=== PATIENT | female | born 1965 | race Caucasian/White ===

== ENCOUNTER 2023-10-05 12:00 | Outpatient (RCR) | payer OTHER, MEDICAID, SELFPAY | END 2023-11-02 09:29 | disposition home or self-care (01) | LOC: HO.PT 12:00 | PROVIDERS: PCP Internal Medicine; Visit Provider Psychiatry & Neurology Neurology | DX: M25.512 Pain in left shoulder (principal); M54.31 Sciatica, right side | CPT/HCPCS: 97110; 97140; 97161 ==

== ENCOUNTER 2025-02-08 08:09 | Outpatient (AMB) | payer OTHER, MEDICAID, SELFPAY ==
--- OUTSIDE RECORDS SUMMARY | 2025-02-08 08:23 | XMS_ITS | Continuity of Care Document ---
Author Organization [place] [facility], Allergy Address [address] [address] Assessment No assessment recorded. Plan of Treatment Reminders Order Date Submit Date Provider Last Modified By Organization Details Last Modified Time Details Appointments Allergy IDT Only 2024 09:00A M [facility] Not available Not available Not available Test Results 15 2024 09:00A M JENN LAINEZ MD Not available Not available Not available Lab None recorded . Referral None recorded . Procedures None recorded . Surgeries None recorded . Imaging None recorded . Medication Orders None recorded . Patient TargetsNo targets recorded. Patient InstructionsNo instructions recorded. Reason for Referral None Reported. Results Created Date Observation Date Name Description Value Unit Range Abnormal Flag Note LastModifiedBy Organization Detail LastModifiedTime 01/24/2001/04/2025 CT, sinus es, w/o contr ast No observ ation record ed. [email or web address] [address], [address], 01/29/2025 17:05:36 02/06/20 25 becky metry testi ng* No observ ation record ed. [email or web address] Not Available 2024 09:25:24 Result Notes None recorded. 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 Active 2024 JENN LAINEZ MD 100 [facility] [address], [address], [place] [facility] 09:25:15 Allergic rhinitis caused by pollen 74233198 Active 2024 JENN LAINEZ MD 100 [facility], [address] [facility], [place], [address], [facility] 5 12:07:19 Migraine 08538855 Active 2024 JENN LAINEZ MD 100 [facility], [address] [facility], [place], [address], [facility] 5 12:07:33 Allergic rhinitis 35061071 Active 2024 JENN LAINEZ MD 100 [facility],[place] [address], [place], [address], [facility] 12:11:31 Non-allergi c rhinitis 510749333814 Active 2024 JENN LAINEZ MD [address] [address], [place], [address], [facility] 12:11:31 Seasonal allergic rhinitis 877170722 Active 2024 JENN LAINEZ MD [address] [address], [place], [address], [facility] 12:11:31 Perennial allergic rhinitis 740265020 Active 2024 KELLY QUEEN [address] [address], [place], [address], [facility] 09:20:47 Problem Notes None recorded. Procedures Surgical History Date Name Laterality Status Provider Name and Address Organization Details Recorded Time Allergy Testing-Full completed KELLY QUEEN [address], [address], [facility] 02/05/2025 09:59:28 Imaging Results None recorded. Procedure Notes None recorded. Medical Equipment None Reported. Allergies Allergen ID Allergen Name Allergen Category Reaction Reaction Severity Criticality Documentation Date Start Date Code Code System Note Provider Name and Address Organization Details Recorded Time 813806 Diflucan medicatio n Not available Not available Not available 01/04/2025 3 RxNorm Melissa murillo [place] - [facility] 5 08:37:17 Medications Name Sig Start Date Stop Date Status Note LastModified by Organization Details LastModified Time cyclobenzap rine 10 mg tablet TAKE 1 TABLET BY MOUTH THREE TIMES A DAY FOR 10 DAYS active Not Available Not Available No t Available doxycycline hyclate 100 mg capsule TAKE 1 CAPSULE ORALLY 2 TIMES A DAY FOR 10DAYS WITH AT LEAST 8OZ OF WATER DON'T LIE DOWN FOR 30 MIN 01/04 completed Not Available Not Available Not Available cetirizine 10 mg tablet TAKE 1 TABLET BY MOUTH 1 TIME EACH DAY. 01/04 completed Not Available Not Available Not Available azithromyci n 250 mg tablet TAKE 2 TABLETS BY MOUTH TODAY, THEN TAKE 1 TABLET DAILY FOR 4 DAYS DIRECTED 01/04 completed Not Available Not Available Not Available prazosin 1 mg capsule TAKE 1 CAPSULE BY MOUTH EVERY NIGHT AT BEDTIME. 01/04 completed Not Available Not Available Not Available senna 8.6 mg tablet TAKE 1 TABLET BY MOUTH EVERY DAY 01/04 completed Not Available Not Available Not Available rizatriptan 10 mg tablet TAKE 1 TABLET BY MOUTH EVERY DAY NEEDED FOR 30 DAYS 01/04 completed Not Available Not Available Not Available clonazepam 1 mg tablet TAKE 1 TABLET BY MOUTH TWICE A DAY AND 1/2 TABLET NEEDED FOR PANIC DIRECTED active Not Available Not Available No t Available amlodipine 2.5 mg tablet TAKE 1 TABLET BY MOUTH EVERY DAY 01/04 completed Not Available Not Available Not Available fexofenadin e 180 mg tablet TAKE 1 TABLET (180 MG TOTAL) BY MOUTH DAILY FOR 90 DAYS active Not Available Not Available No t Available tramadol 50 mg tablet TAKE 1 TABLET BY MOUTH TWICE A DAY 01/04 completed Not Available Not Available Not Available butalbital- acetaminoph en-caffeine 50 mg-325 mg-40 mg tablet TAKE 1 TABLET BY MOUTH 2 (TWO) TIMES A DAY IF NEEDED FOR HEADACHES FOR UP TO 8 DOSES. 01/04 completed Not Available Not Available Not Available hydrocortis one 2.5 % topical cream with perineal applicator APPLY TOPICALLY 3 TIMES DAILY 01/04 completed Not Available Not Available Not Available famotidine 20 mg tablet TAKE 1 TABLET BY MOUTH 2 TIMES DAILY NEEDED FOR HEARTBURN . 01/04 completed Not Available Not Available Not Available trazodone 100 mg tablet TAKE 2 & 1/2 TABLETS BY MOUTH EVERYDAY AT BEDTIME active Not Available Not Available No t Available meclizine 25 mg tablet TAKE 1 TABLET BY MOUTH EVERY 6 HOURS NEEDED FOR VERTIGO 01/04 completed Not Available Not Available Not Available benzonatate 100 mg capsule SWALLOW WHOLE TAKE 1 CAPSULE 3 TIMES A DAY NEEDED *DO NOT BREAK CHEW, DISSOLVE, CUT, OR CRUSH* 01/04 completed Not Available Not Available Not Available rizatriptan 10 mg disintegrat ing tablet PLACE 1 TABLET ON TONGUE AND ALLOW TO DISSOLVE ONCE DAILY NEEDED 01/04 completed Not Available Not Available Not Available pantoprazol e 40 mg tablet,paolo yed release TAKE 1 TABLET BY MOUTH 2 TIMES DAILY BEFORE MEALS ON EMPTY STOMACH, WAIT 30 MINS AND THEN EAT 01/04 completed Not Available Not Available Not Available oseltamivir 75 mg capsule TAKE 1 CAPSULE BY MOUTH TWICE A DAY FOR 5 DAYS 01/04 completed Not Available Not Available Not Available naproxen 500 mg tablet,paolo yed release TAKE 1 TABLET BY MOUTH TWICE A DAY FOR 10 DAYS 01/04 completed Not Available Not Available Not Available docusate sodium 100 mg capsule TAKE 1 CAPSULE BY MOUTH TWICE A DAY FOR 10 DAYS 01/04 completed Not Available Not Available Not Available oxybutynin chloride ER 5 mg tablet,exte nded release 24 hr TAKE 1 TABLET BY MOUTH EVERY DAY DO NOT CRUSH, CHEW, OR SPLIT 01/04 completed Not Available Not Available Not Available montelukast 10 mg tablet TAKE 1 TABLET BY MOUTH EVERYDAY AT BEDTIME active Not Available Not Available No t Available capsaicin 0.025 % topical cream APPLY TOPICALLY 4 (FOUR) TIMES A DAY IF NEEDED (PAIN). 01/04 completed Not Available Not Available Not Available bisacodyl 5 mg tablet,paolo yed release TAKE 2 TABLETS BY MOUTH RIGHT BEFORE BEGINNING BOWEL PREP. SEE INSTRUCTI ONS PROVIDED BY THE OFFICE 01/04 completed Not Available Not Available Not Available gabapentin 100 mg capsule TAKE 2 CAPSULE BY MOUTH EVERY NIGHT AT BEDTIME active Not Available Not Available No t Available azelastine 137 mcg (0.1 %) nasal spray USE 2 SPRAYS BY EACH NARE ROUTE 2 TIMES DAILY. USE IN EACH NOSTRIL DIRECTED active Not Available Not Available No t Available methylpredn isolone 4 mg tablets in a dose pack TAKE 6 TABLETS ON DAY 1 DIRECTED ON PACKAGE AND DECREASE BY 1 TAB EACH DAY FOR A TOTAL OF 6 DAYS 01/04 completed Not Available Not Available Not Available ondansetron 4 mg disintegrat ing tablet DISSOLVE 1 TABLET ON TOP OF THE TONGUE EVERY 12 HOURS IF NEEDED FOR NAUSEA OR VOMITING 01/04 completed Not Available Not Available Not Available fluticasone propionate 50 mcg/actuati on nasal spray,suspe nsion SPRAY 2 SPRAYS INTO EACH NOSTRIL EVERY DAY 02/05 completed Not Available Not Available Not Available prazosin 2 mg capsule TAKE 1 CAPSULE BY MOUTH EVERY NIGHT AT BEDTIME. 01/04 completed Not Available Not Available Not Available naproxen 500 mg tablet TAKE 1 TABLET BY MOUTH 2 TIMES PER DAY NEEDED FOR PAIN FOR 30 DAYS 01/04 completed Not Available Not Available Not Available amoxicillin 875 mg-potassiu m clavulanate 125 mg tablet TAKE 1 TABLET BY MOUTH TWICE A DAY FOR 10 DAYS 01/04 completed Not Available Not Available Not Available Yana-Lanta 200 mg-200 mg-20 mg/5 mL oral suspension TAKE 15 ML BY MOUTH 4 TIMES DAILY NEEDED FOR OTHER (HEARTBUR N). 01/04 completed Not Available Not Available Not Available metoprolol tartrate 25 mg tablet TAKE 1/2 TABLET TWICE A DAY BY MOUTH 01/04 completed Not Available Not Available Not Available duloxetine 30 mg capsule,del ayed release TAKE 1 CAPSULE BY MOUTH EVERY DAY FOR 90 DAYS active Not Available Not Available No t Available duloxetine 60 mg capsule,del ayed release TAKE 1 CAPSULE BY MOUTH EVERY DAY FOR 90 DAYS 01/04 completed Not Available Not Available Not Available PreviDent 5000 Sensitive 1.1 %-5 % dental paste USE TO BRUSH TEETH TWCE DAILY. DO NOT RINSE. NO FOOD OR DRINK FOR 30 MINUTES AFTER USE 01/04 completed Not Available Not Available Not Available fluticasone propionate 115 mcg-salmete rol 21 mcg/actuati on HFA inhaler INHALE 2 PUFFS INTO THE LUNGS TWICE A DAY 02/05 completed Not Available Not Available Not Available diclofenac 1 % topical gel APPLY 4 GRAMS TOPICALLY TWICE DAILY active Not Available Not Available No t Available GaviLyte-G 236 gram-22.74 gram-6.74 gram-5.86 gram oral solution PLEASE SEE ATTACHED FOR DETAILED DIRECTION S 01/04 completed Not Available Not Available Not Available Aimovig Autoinjecto r 140 mg/mL subcutaneou s auto-inject or INJECT 1 PEN SUBCUTANE OUSLY ONCE A MONTH 01/04 completed Not Available Not Available Not Available Vitals Date Recorded Body height Oxygen saturation Oxygen saturation in Arterial blood by Pulse oximetry Heart rate Body mass index (BMI) Body weight Systolic And Diastolic Provider Name and Address Organization Details Last Updated DateTime 165.1 cm 97 % 97 % 63 /min 27.3 kg/m2 67945.1 5 g 105/73 mm[Hg] KELLY QUEEN 100 [facility],[address], [place], [address] [place] [address] [facility] 09:19:58 Social History None recorded. Functional Status None recorded. Mental Status None recorded. Family History Nothing Reported. Medical History Condition Response Migraines Y Anxiety Y Gynecological HistoryNo gynecological history recorded. Obstetrics History GPAL:G 0 P 0 0 0 0 Past Encounters Encounter ID Performer Location Encounter Start Date Encounter Closed Date Diagnosis/Indication Diagnosis SNOMED-CT Code Diagnosis ICD10 Code Diagnosis IMO Codes Diagnosis Note [id number] KELLY QUEEN [facility] [place] [address] [address] [place] [address] 02/05/2025 08:48:35 02/05/2025 09:59:46 Perennial allergic rhinitis 535953187 J30.89 514993 Health Concerns Section Related Observation LastModified by Organization Detai ls LastModified Time None Recorded Concern Status LastModified by Organization Details LastModified Time None Recorded Payers Encounter Date Sequence Insurance Name Policy Number Policy Brown Covered Member ID Brown Member ID Guarantor Name 02/05/2025 1 [facility] [id number] Ghazal Her [id number] Ghazal Her 02/05/2025 2 [place]: [facility] Ghazal Her [id number] Ghazal Her OBGyn Episode No OBEpisode recorded.
--- OUTSIDE RECORDS SUMMARY | 2025-02-08 08:23 | XMS_ITS | Data Portability ---
Author Organization [place] [facility], Allergy Address [address] [address] Assessment Encounter Date Assessment Date Assessment LastModified by Organization Details LastModified Time 01/04/2025 01/04/2025 59-year-old female with a history of migraines, not adequately controlled with Aimovig, seasonal allergies on oral antihistamine and fluticasone, presents today for evaluation of recurrent sinusitis which is generally treated with antibiotics. She is feeling symptomatic today with congestion and nasal rhinorrhea. She has had head imaging including a CT of the head 1 week ago and an MRI in September 2023 which I reviewed which showed clear sinuses. On exam today, septum is deviated to the right, no active mucus drainage is noted. Given she is acutely symptomatic today and her most recent CT of the head did not include the majority of the maxillary sinuses, we did proceed with in office CT today which showed trace mucosal thickening in the maxillary sinuses, no air-fluid levels or any sinus obstruction. Formal radiology review pending. I have reassured her that there is no evidence of any acute bacterial sinusitis contributing to her symptoms. I think her recurrent symptoms are much more likely related to allergies and migraines. Will add in azelastine and I have recommended updated testing as she may be a candidate for IT. [email or web address] Not available 01/04/2025 12:13:29 Plan of Treatment Reminders Order Date Submit Date Provider Last Modified By Organization Details Last Modified Time Details Appointments Allergy IDT Only 2024 09:00A [facility] Not available Not available Not available Test Results 15 2024 09:00A M JENN LAINEZ MD Not available Not available Not available Lab None recorded. Referral None recorded. Procedures allergy testing, skin prick (PROC) 2024 025 [email or web address] Not available 02/05/2025 09:32:11 intraderm al allergy skin testing (PROC) 2024 025 Not available 02/05/2025 09:32:17 pulmonary function test procedure (PROC) 2024 025 [email or web address] Not available 02/05/2025 09:32:23 pulse oximetry (PROC) 2024 025 [email or web address] Not available 02/05/2025 09:32:29 Surgeries None recorded. Imaging CT, sinuses, w/o contrast 2024 025 [facility], [address] [place] [address], [address], 01/17/2025 11:58:20 Medication Orders azelastin e 137 mcg (0.1 %) nasal spray 2024 025 [facility] #[id number], [address] [place], [address], 01/04/2025 12:11:59 Patient TargetsNo targets recorded. Patient InstructionsNo instructions recorded. Reason for Referral None Reported. Results Created Date Observation Date Name Description Value Unit Range Abnormal Flag Note LastModifiedBy Organization Detail LastModifiedTime 01/05/20 CT, sinus es, w/o contr ast No observ ation record ed. [facility] Of [address], [address], 01/04/2025 12:06:38 01/24/2001/04/2025 CT, sinus es, w/o contr ast No observ ation record ed. [facility] Of [address], [address], 01/29/2025 17:05:36 02/06/20 25 becky metry testi ng* No observ ation record ed. [email or web address] Not Available 2024 09:25:24 Result Notes None recorded. Problems Name Problem SNOMED Code Status Onset Date Resolution Date Notes Provider Name and Address Organization Details Recorded Time Atypical facial pain 44451724 Active 2024 JENN LAINEZ MD [address], [place], [address], [facility] [place] 09:25:15 Allergic rhinitis caused by pollen 66567272 Active 2024 JENN LAINZE MD [address], [place], [address], [facility] - [facility] [place] 12:07:19 Migraine 61292637 Active 2024 JENN LAINEZ MD [address], [place], [address], [facility] - [facility] 12:07:33 Allergic rhinitis 85787890 Active 2024 JENN LAINEZ MD [address], [place], [address], [facility] - [facility] 12:11:31 Non-allergi c rhinitis 498477404338 Active 2024 JENN LAINEZ MD [address], [place], [address], [facility] - [facility] [place] 12:11:31 Seasonal allergic rhinitis 869821463 Active 2024 JENN LAINEZ MD [address], [place], [address], [facility] - [facility] [place] 12:11:31 Perennial allergic rhinitis 780711199 Active 2024 KELLY QUEEN [address], [place], [address], [facility] - [facility] [place] 09:20:47 Problem Notes None recorded. Procedures Surgical History Date Name Laterality Status Provider Name and Address Organization Details Recorded Time Allergy Testing-Full completed STEPAN LEIVA, [facility] 100 [facility], [place], [address], [facility] - [facility] 02/05/2025 09:59:28 Imaging Results None recorded. Procedure Notes None recorded. Medical Equipment None Reported. Allergies Allergen ID Allergen Name Allergen Category Reaction Reaction Severity Criticality Documentation Date Start Date Code Code System Note Provider Name and Address Organization Details Recorded Time 14101223 Diflucan medicatio n Not available Not available Not available 01/04/2025 3 RxNorm Melissa murillo [facility] 08:37:17 Medications Name Sig Start Date Stop [...] Not Available Vitals Date Recorded Body height Body mass index (BMI) Body weight Provider Name and Address Organization Details Last Updated DateTime 01/04/2025 165.1 cm 27.3 kg/m2 60620.15 g Melissa Young [place] - [facility] 01/04/2025 08:36:48 Date Recorded Body height Oxygen saturation Oxygen saturation in Arterial blood by Pulse oximetry Heart rate Body mass index (BMI) Body weight Systolic And Diastolic Provider Name and Address Organization Details Last Updated DateTime 165.1 cm 97 % 97 % 63 /min 27.3 kg/m2 75359.1 5 g 105/73 mm[Hg] STEPAN LEIVA, [facility] [address], [address] [place] [facility] 09:19:58 Social History None recorded. Functional Status None recorded. Mental Status None recorded. Family History Nothing Reported. Medical History Condition Response Migraines Y Anxiety Y Gynecological HistoryNo gynecological history recorded. Obstetrics History GPAL:G 0 P 0 0 0 0 Past Encounters Encounter ID Performer Location Encounter Start Date Encounter Closed Date Diagnosis/Indication Diagnosis SNOMED-CT Code Diagnosis ICD10 Code Diagnosis IMO Codes Diagnosis Note [id number] JENN LAINEZ MD [facility] 100 [facility] [place] [address] 01/04/2025 08:27:05 01/04/2025 10:08:59 Atypical facial pain 55016614 G50.1 111347 Allergic r hinitis caused by pollen 90938695 J30.1 95156837 Migraine 94074579 G43.90 9 [id number] KELLY QUEEN Allergy 100 [facility] it[address] 100 [facility] [place] [address] 02/05/2025 08:48:35 02/05/2025 09:59:46 Perennial allergic rhinitis 855809749 J30.89 112393 Health Concerns Section Related Observation LastModified by Organization Detai ls LastModified Time None Recorded Concern Status LastModified by Organization Details LastModified Time None Recorded Advance Directives Directive None Recorded Payers Insurance Date Sequence Insurance Name Policy Number Policy Brown Covered Member ID Brown Member ID Guarantor Name 02/02/2025 1 [facility] [id number] Ghazal Her [id number] Ghazal Her 02/04/2025 2 [place]: [facility] Ghazal Her [id number] Ghazal Her Notes Date Note Type Note Provider Name and Address Organization Details Recorded Time 5 text/html ROS as noted in the HPI 59-year-old female presents today for evaluation of recurrent sinusitis. Recurrent sinus infections occurring every month for the last few yearsLast sinus infection was 2 months ago, which was treated with antibiotics (unsure of name)She currently has pain and pressure over her cheeks and forehead, and both ears feel cloggedShe will develop nasal discharge that is clear or yellow in color and nasal congestionOccasionally gets a fever with her sinus infectionsSymptoms will fully resolve after finishing antibioticsDecreased airflow through the right nostrilDenies anosmiaNo prior head imaging that she recalls, though I was able to find a CT head from 1 week ago performed for dizziness which showed clear sinuses. This included to the superior maxillary sinus. The floor of the maxillary sinus was not visualized. She had an MRI which included the full sinuses in September 2023 and they were clear. She had a CTA of the head and neck on the same day. No surgeries of the head Feels that her right cheek has been getting swollen over the last year Ears feel clogged History of migraine, Aimovig injections monthly, gets migraine headaches dailyHistory of seasonal allergies, currently on oral antihistamines and Flonase. Had testing many years ago, which was positive to trees and cats. No immunotherapy JENN LAINEZ MD [address] [place] [address], [place], [address], [facility] - [facility] 01/04/2025 12:14:13 OBGyn Episode No OBEpisode recorded.
--- OUTSIDE RECORDS SUMMARY | 2025-02-08 08:23 | XMS_ITS | Encounter Summary ---
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 Phone Nadeem Mendosa MD Primary Care Provider [phone] Reason for Visit * Reason Onset Date Comments Referral 01/02/2025 EXTERNAL Encounter Details Date Type Department Care Team (Late st Contact Info) Description 01/02/2025 Telephone Internal Medicine - [address] [phone] Nadeem Mendosa MD [address] [place] [id number] Social History Tobacco Use Types Packs/Day Years Used Date Smoking Tobacco: Never Smokeless Tobacco: Never Alcohol Use Standard Drinks/Week Comments Yes 1 (1 standard drink = 0.6 oz pur e alcohol) occas Interpersonal Safety Answer Date Record ed Physical Abuse Unrecognized value 11/23/2024 Verbal Abuse Unrecognized value 11/23/2024 Comments No Sex and Gender Information Value Date Recorded Sex Assigned at Female 05/25/2024 2:24 PM EST Legal Sex Female 5:06 AM EST Gender Identity Female 05/25/2024 2:25 PM EST Sexual Orientation Straight 05/25/2024 2: 25 PM EST documented as of this encounter Functional Status * Are you deaf or do you have serious difficulty hearing? Answer Date of Assessment Author No 12/27/2024 9:21 PM EDT Melissa Zacarias, ELEAZAR * Are you blind or do you have serious difficulty seeing, even when wearing glasses? Answer Date of Assessment Author No 12/27/2024 9:21 PM EDT Melissa Zacarias RN * Do you have serious difficulty walking or climbing stairs? Answer Date of Assessment Author No 12/27/2024 9:21 PM EDT Melissa Zacarias RN * Do you have serious difficulty dressing or bathing? Answer Date of Assessment Author No 12/27/2024 9:21 PM EDT Melissa Zacarias RN * Because of a physical, mental, or emotional condition, do you have serious difficulty doing errandsalone such as visiting the doctor? Answer Date of Assessment Author No 12/27/2024 9:21 PM EDT Melissa Zacarias RN documented as of this encounter Mental Status * Because of a physical, mental, or emotional condition, do you have serious difficulty concentrating, remembering, or making decisions? (5 years old or older) Answer Entry Date Author No 12/27/2024 9:21 PM EDT Melissa Zacarias RN documented in this encounter Progress Notes * Liset Irizarry NP - 01/02/2025 4:47 PM EDT Needs ER follow-up for referral * Quita Barahona MA - 01/02/2025 12:53 PM EDT Last seen 11/13/24, referral pended. * Caitlin Lopez - 01/02/2025 11:50 AM EDT Referral Request: What insurance does the patient have today? [employer] Referrals cannot be processed if the insurance is not accurate. If the insurance listed above in red is NO BILLING INFORMATION FOUND FOR THIS ENCOUTNER The patients correct insurance must be obtained and registered in [facility] or their referral can not be processed. Who is calling to request this referral? PT If the caller is not the patient, what is their name? not applicable Ask the patient WHO referred them to this specialty: Patient was seen in the [facility] by 12/27/24 Lázaro Jaffe and was referred to this specialty FIRST and LAST NAME of SPECIALIST PATIENT is seeing: TBD What specialty is this? Neurology DIAGNOSIS Patient is being seen for (Not a body part or a procedure): Concussion Have you seen this SPECIALIST for this PROBLEM/DX before? If YES, when? No Have you checked REVIEW or the APPT DESK to see if this referral has already been done or has visits left? yes Is this visit: Initial Visit Address of Specialist: [address] [facility] [address], [place] [address] Phone # of Specialist: [phone] Fax #: (if applicable): n/a Does patient have an appointment scheduled?: no Date of appointment- (including a retro-request): n/a Is this appointment related to: Worker Comp documented in this encounter Plan of Treatment Upcoming Encounters Date Type Department Care Team (Late st Contact Info) Description 02/19/2025 10:00 AM EST Office Visit Obstetrics and Gynecology - [address] [phone] Kisha Mei, PA [address] [place] [phone] 05/15/2025 2:15 PM EST Office Visit Pulmonology - [place] [address] [facility] [address] [place] [address] Gm Spaulding MD [address] [facility] [address] [place] [address] documented as of this encounter Visit Diagnoses Diagnosis Concussion with unknown loss of consciousness status, initial encounter- Primary documented in this encounter Care Teams Lumber Yard Worker Relationship Specialty Start Date End Date Nadeem Mendosa MD [address] [place] [id number] PCP - General Internal Medicine 12/31/14 documented as of this encounter
--- OUTSIDE RECORDS SUMMARY | 2025-02-08 08:24 | XMS_ITS | Clinical Summary ---
Author Organization [address] Address [address] [place] [phone] Phone Care Team Providers Care News Photographer Name Role Phone Nadeem Mendosa MD Primary Care Provider [phone] Allergies Active Allergy Reactions Criticality Noted Date Comments Fluconazole 06/27/2007 Red face, rash Sulfa (Sulfonamide Antibiotics) Rash 01/23/2015 Other reaction(s): Rash/Dermatitis Medications acetaminophen (TYLENOL 8 HOUR) 650 mg 8 hr tablet Take 1 Tablet by mouth 3 times daily for 30 days. 023 Active clonazePAM (KlonoPIN) 1 mg tablet 023 Active ketotifen (ZADITOR) 0.025 % ophthalmic solution 023 Active albuterol HFA (PROAIR HFA ; PROVENTIL HFA ; VENTOLIN HFA) 90 mcg/actuation inhaler Inhale 2 Puffs into the lungs 4 times daily as needed for Cough, Wheezing or Shortness of Breath. 023 Active amLODIPine (NORVASC) 2.5 mg tablet Take 1 tablet (2.5 mg total) by mouth 1 (one) time each day. 023 Active neomycin-polymyx in-hydrocortison e (CORTISPORIN) 3.5-10,000-1 mg/mL-unit/mL-% otic suspension Administer 3 drops into affected ear(s). 023 Active estradioL (ESTRACE) 0.01 % (0.1 mg/gram) vaginal cream Start after finishing Miconazole treatment. Use 0.5 finger tip application nightly for 2 weeks, then reduce to 0.5 fingertip application twice a week Active loratadine (CLARITIN) 10 mg tablet Take 1 tablet (10 mg total) by mouth. Active erenumab-aooe (Aimovig Autoinjector) 140 mg/mL injection INJECT 1 ML SUBCUTANEOUSLY MONTHLY 90 Active triamcinolone (NASACORT) 55 mcg nasal inhaler Administer 1 spray into each nostril 1 (one) time each day. Active mupirocin (BACTROBAN) 2 % ointment APPLY 2 TIMES DAILY FOR 10 DAYS Active nitroglycerin (NITROSTAT) 0.[address] 1 tablet (0.4 mg total) under the tongue every 5 (five) minutes if needed. Active diclofenac (VOLTAREN) 75 mg EC tablet Take 1 tablet (75 mg total) by mouth 2 (two) times a day. Active clotrimazole-bet amethasone (LOTRISONE) 1-0.05 % cream APPLY SPARINGLY TO AFFECTED AREA TWICE A DAY FOR UP TO 2 WEEKS Active pantoprazole (PROTONIX) 40 mg EC tablet TAKE 1 TABLET BY MOUTH DAILY. TAKE IN AM ON EMPTY STOMACH, WAIT 30 MINS AND THEN EAT TO ACTIVATE THE MEDICATION Active ketotifen (ZADITOR) 0.025 % ophthalmic solution Administer 2 drops into affected eye(s). Active sulindac (CLINORIL) 150 mg tablet Take 1 tablet (150 mg total) by mouth 2 (two) times a day. Active psyllium (Daily Fiber, psyllium-aspart, ) 3.4 gram packet Take 1 packet by mouth. Active mometasone (ELOCON) 0.1 % ointment Apply half a fingertip amount to the vulva nightly x2 weeks Active meloxicam (MOBIC) 7.5 mg tablet TAKE 1 TABLET(7.5 MG) BY MOUTH DAILY NEEDED FOR PAIN 07/08/2 019 Active gabapentin (NEURONTIN) 300 mg capsule Take 300 mg by mouth 3 times daily. Active cyclobenzaprine (FLEXERIL) 10 mg tablet TAKE 1 TABLET BY MOUTH THREE TIMES A DAY NEEDED FOR MUSCLE SPASM Active aluminum-magnesi um hydroxide-simeth icone (MAALOX) 200-200-20 mg/5 mL suspension Take 15 mL by mouth 4 times daily as needed for Other (heartburn). Active hydrocortisone (ANUSOL-HC) 2.5 % rectal cream Apply 1 Act topically 3 times daily. Active rizatriptan (MAXALT-LUNCHROOM OPERATOR) 10 mg disintegrating tablet Take 1 Tablet by mouth as needed. May repeat in 2 hours if needed Active COOL MIST HUMIDIFIER MISC 0.8 Gallons by Does not apply route daily as needed (congestion). Active capsaicin (ZOSTRIX) 0.025 % cream Apply topically 4 (four) times a day if needed (pain). 60 g 024 Active metoprolol tartrate (LOPRESSOR) 25 mg tablet TAKE 1/2 TABLET TWICE A DAY BY MOUTH 90 tablet 1 024 Active traZODone (DESYREL) 100 mg tablet Take 1 tablet (100 mg total) by mouth at bedtime. 30 each 2 025 Active plecanatide (Trulance) 3 mg tablet Take 1 tablet (3 mg total) by mouth 1 (one) time each day. 30 tablet 11 025 Active azelastine (ASTELIN) 137 mcg (0.1 %) nasal sprayIndications :Other seasonal allergic rhinitis 2 SPRAYS BY EACH NARE ROUTE 2 TIMES DAILY. USE IN EACH NOSTRIL DIRECTED 90 mL 3 025 Active cetirizine (ZyrTEC) 10 mg tablet Take 1 tablet (10 mg total) by mouth 1 (one) time each day. 90 tablet 1 025 Active diclofenac (VOLTAREN) 1 % topical gel APPLY 4 GRAMS TOPICALLY TWICE DAILY 100 g 2 025 Active famotidine (PEPCID) 20 mg tabletIndication s:Shortness of breath TAKE 1 TABLET BY MOUTH 2 TIMES DAILY NEEDED FOR HEARTBURN. 180 tablet 3 025 Active meclizine (ANTIVERT) 25 mg tablet TAKE 1 TABLET BY MOUTH EVERY 6 HOURS NEEDED FOR VERTIGO 90 tablet 025 Active oxyBUTYnin XL (DITROPAN-XL) 5 mg 24 hr tablet Take 1 tablet (5 mg total) by mouth 1 (one) time each day. Do not crush, chew, or split. 30 tablet 5 025 2025 Active polyethylene glycol (Golytely) 236-22.74-6.74 -5.86 gram solution Take 4L by mouth once for one dose. May substitue any PEG. Starting at 2PM the day before your procedure drink 1 8oz glasses at your own pace until you complete half of the gallon. Finish 2nd half of the gallon at 8PM. 4000 mL Active bisacodyL (DULCOLAX) 5 mg EC tablet Take 2 tablets by mouth right before beginning bowel prep. See instructions provided by the office 2 tablet 025 Active fluticasone propion-salmeter oL (ADVAIR HFA) 115-21 mcg/actuation inhalerIndicatio ns:Moderate persistent asthma, uncomplicated INHALE 2 PUFFS INTO THE LUNGS TWICE A DAY 12 each 1 025 Active butalbital-aceta minophen-caffein e (FIORICET, ESGIC) 50-325-40 mg per tablet Take 1 tablet by mouth 2 (two) times a day if needed for headaches for up to 8 doses. 8 tablet 025 Active montelukast (SINGULAIR) 10 mg tabletIndication s:Moderate persistent asthma, uncomplicated,Ot her seasonal allergic rhinitis TAKE 1 TABLET BY MOUTH EVERYDAY AT BEDTIME 90 tablet 1 025 Active fluticasone propionate (FLONASE) 50 mcg/actuation nasal spray Administer 2 sprays into each nostril 1 (one) time each day. 48 mL 1 025 Active naproxen (NAPROSYN) 500 mg tablet Take 1 tablet (500 mg total) by mouth if needed. 025 Active SUMAtriptan (IMITREX) 50 mg tablet Take 1 tablet (50 mg total) by mouth if needed for migraine. 9 tablet 1 025 Active traMADoL (ULTRAM) 50 mg tablet Take 1 tablet (50 mg total) by mouth 2 (two) times a day. 56 tablet Active ondansetron ODT (ZOFRAN-ODT) 4 mg disintegrating tablet Dissolve 1 tablet (4 mg total) on top of the tongue every 12 (twelve) hours if needed for nausea or vomiting for up to 20 doses. 20 tablet Active senna 8.6 mg tablet TAKE 1 TABLET BY MOUTH EVERY DAY 90 tablet Active montelukast (SINGULAIR) 10 mg tabletIndication s:Moderate persistent asthma, uncomplicated,Ot her seasonal allergic rhinitis TAKE 1 TABLET BY MOUTH EVERYDAY AT BEDTIME 90 tablet 1 2024 Discontinued fluticasone propionate (FLONASE) 50 mcg/actuation nasal spray SPRAY 2 SPRAYS INTO EACH NOSTRIL EVERY DAY 48 mL 1 024 2024 Discontinued(R eorder) senna 8.6 mg tablet TAKE 1 TABLET BY MOUTH EVERY DAY 90 tablet 1 025 2024 Discontinued traMADoL (ULTRAM) 50 mg tablet TAKE 1 TABLET BY MOUTH TWICE A DAY 56 tablet 2024 Discontinued(R eorder) ondansetron ODT (ZOFRAN-ODT) 4 mg disintegrating tablet Dissolve 1 tablet (4 mg total) on top of the tongue every 12 (twelve) hours if needed for nausea or vomiting for up to 20 doses. 20 tablet 2024 Discontinued(R eorder) SUMAtriptan (IMITREX) 50 mg tablet Take 1 tablet (50 mg total) by mouth if needed. 024 2024 Discontinued(R eorder) Active Problems Problem Noted Date Diagnosed Date Constipation, unspecified 01/13/2024 Migraine with aura and witho ut status migrainosus, not intractable 01/13/2024 Primary hypertension 07/29/2023 Gastritis 06/14/2023 Epigastric pain 06/14/2023 Early satiety 06/14/2023 Swallowing difficulty 06/14/2023 Asthma 02/21/2023 Overview (06/14/2023): Last Assessment & Plan: The patient reports ongoing shortness of breath with exertion. However, she does have a history of asthma and is not using her rescue inhaler at all with the symptoms. I have requested that she start doing so to see if this improves her symptoms, as this may very well be the cause for her shortness of breath with exertion as well as deconditioning as she has not active and often spends a fair amount of time sitting behind a computer. She will attempt to increase activity as tolerated with the assistance of her daughter. If her rescue inhaler does not improve her shortness of breath, an echocardiogram may be warranted to further evaluate for valvular abnormalities or other structural disease. Cardiac microvascular disease 02/21/2023 Overview (06/14/2023): Last Assessment & Plan: The patient has a history of chest pain which radiates to her left arm as well as her lips and caused her to present to the emergency room [facility] in 10/2022. Unfortunately, due to a long wait she left the emergency room before being evaluated further; she was noted to have an additional EKG without significant ST-T changes and had normal troponins. Once she started taking baby aspirin at home, she reported that her chest pain resolved. Insurance previously had declined a PET/CT stress scan, and given the patient's symptoms she underwent cardiac catheterization on 01/25/2023 revealing normal LMCA, LAD, left circumflex, and RCA. There was sluggish vealed a normal LMCA, normal LAD, normal left circumflex, and normal RCA. There was sluggish EUSEBIA II flow in the LAD and left circumflex which made acute microvascular disease particularly since the patient's symptoms improved with nitroglycerin. The patient was subsequently started on Imdur 30 mg once daily in addition to metoprolol 12.5 mg twice daily. The patient reports that she was unable to tolerate Imdur in the past due to headaches, and therefore never started this medication; she also reports that this is the same headache she gets with nitroglycerin and is therefore not using nitroglycerin any longer either. She has been bradycardic with heart rates in the 50s to 60s with her last several readings, and therefore I do not think she would tolerate any further increase in her metoprolol. As such, we will trial very low-dose of amlodipine however I am not sure she will tolerate this well either. She does appear to have occasional low blood pressures which she is symptomatic of, and I am concerned that the amlodipine may aggravate this further. She was requested to check her blood pressures daily and to stop amlodipine and contact the office if she again experienced symptomatic hypotension. She is admittedly not good about remaining well-hydrated, and I requested that she do her best to improve her hydration and we discussed strategies to do this with flavoring water with an infusion bottle, lemon juice, or a small amount of juice such as apple juice. She states that Dr. Polo told her she could stop her daily baby aspirin; I have confirmed this verbally with Dr. Polo who states given her clean coronaries, she does not need to be on daily baby aspirin or statin at present. Her last lipid panel completed 12/2022 reveals an LDL of less than 100. I have reviewed the plan to start amlodipine with the patient and Dr. Polo, both of which are in agreement with this. The patient's daughter verbalizes understanding as well. We will plan to follow-up in 3 months, sooner as needed if she does not tolerate amlodipine well. We had a long discussion about improving diet and increasing activity level as tolerated to help with endurance and heart health; the patient's daughter appears motivated to help her with this. I have reviewed with the patient the importance of a heart healthy lifestyle which includes eating a low-fat low-salt diet, getting regular exercise, maintaining a healthy weight, not smoking, and following up with routine medical care. Patient advised to seek emergency medical attention by calling 911 if they were to develop severe dyspnea, chest pain that did not resolve with rest or nitroglycerin, or if they were to faint. Dyspnea on exertion 02/21/2023 Chest pain 11/05/2022 Bradycardia 11/05/2022 Seasonal allergies 08/25/2021 Renal cyst 06/10/2020 COVID-19 virus infection 04/29/2020 Overview (06/14/2023): Tested 04/22/20 [facility] Iron deficiency anemia due to chronic blood loss 12/22/2018 Anemia 12/13/2018 Overview (06/14/2023): Seen on tests ordered in the walk in care; PCP referral placed for further investigation Elevated liver enzymes 12/13/2018 Overview (06/14/2023): Seen on tests ordered in the walk in care; PCP referral placed for further investigation ARMD (age related macular degeneration) 01/06/20 16 Onychomycosis 01/22/2015 Vitamin D deficiency 09/27/2014 Fibromyalgia 07/18/2014 Overview (06/14/2023): Onset 2013. Backache 10/17/2013 Overview (06/14/2023): 09/29 lumber mri Multilevel bony and disc degenerative changes more prominent at the T11-12 level with para-midline herniation of the disc abutting the spinal cord and at L5-S1 level with broad-based by Protrusion of the disc abutting the S1 nerve roots. Asymmetric bulging of the L3-4 disc to the left. Broad-based left lateral protrusion of the L4-5 disc to the left. See details in the report. 09/29-mri c spine Minimal bulging of the discs at several levels. No focal disc herniation, spinal cord or nerve root compression at any level. No focal signal abnormalities within the cord Retinopathy 09/01/2011 Refractive amblyopia 09/01/2011 Blindness of one eye 10/10/2009 Overview (06/14/2023): Left eye blind since Constipation 10/10/2009 Overview (06/14/2023): cpx 09/09/09 - pt given suggestions for diet changes IMO [id number] update Heartburn 10/10/2009 Overview (06/14/2023): cpx 10/10/09- omeprazole works for her. Normal upper GI endoscopy on PPI treatment 02/24/2010. Insomnia, unspecified 09/30/2006 Migraine with aura 09/30/2006 Overview (06/14/2023): CT head 2005 negative cpx 10/10/09- imitrex works for her IMO update Allergic rhinitis 09/13/2006 Overview (06/14/2023): ct sinus -maxillary retention cyst cpx 10/10/09 Taking zyrtec and using flonase Depressive disorder 09/13/2006 Overview (06/14/2023): seeing councellor cpx 10/10/09 - stopped seeing therapist ; plans to go back ; takes celexa , trazodone and clonazepam Cpx 05/10/11 - startting 05/15/11 seeing Kisha Torres (? Sp) in [place] - [facility] Anxiety state 07/11/2006 Overview (06/14/2023): Sees doctor at [facility], in [place] cpx 10/10/09 - going back to therapist Cpx 04/2311 - seeing therapist 05/15/11 at [facility] in [place] Encounters Date Type Department Care Team Description 01/21/2025 10:45 AM EDT Office Visit [facility] [address] [facility] [place] [phone] Liset Irizarry, RAPHAEL Injury of head, subsequent encounter (Primary Dx); Contusion of multiple sites of right shoulder, subsequent encounter; Acute nonintractable headache, unspecified headache type; Concussion without loss of consciousness, subsequent encounter 01/02/2025 Telephone Internal Medicine - [facility] [address] [place] [address] Nadeem Mendosa MD 01/02/2025 [facility] [address] [place] [address] Nadeem Mendosa MD 12/27/2024 8:39 PM EDT - 12/27/2024 9:21 PM EDT Emergency [facility] Emergency [address] [place] [phone] Lázaro Jaffe MD Concussion without loss of consciousness, initial encounter (Primary Dx); Contusion of multiple sites of right shoulder and upper arm, initial encounter Discharge Disposition: Home or Self Care 12/27/2024 Telephone Internal Medicine - [address] [phone] Naedem Mendosa MD 12/18/2024 1:30 PM EDT - 12/18/2024 11:59 PM EDT Hospital Encounter [facility] Xray [address] [place] [phone] Pain Discharge Disposition: Home or Self Care 12/18/2024 1:29 PM EDT - 12/18/2024 11:59 PM EDT Hospital Encounter [facility] Xray [address] [place] [phone] Pain Discharge Disposition: Home or Self Care 12/18/2024 1:27 PM EDT - 12/18/2024 11:59 PM EDT Hospital Encounter [facility] Xray [address] [place] [phone] Pain in shoulder Discharge Disposition: Home or Self Care 12/12/2024 10:00 AM EDT Treatment [facility] [address] [phone] Martha Greenwood, PT Chronic left shoulder pain (Primary Dx) 12/10/2024 3:30 PM EDT Treatment [facility] [address] [phone] Martha Greenwood, PT Chronic left shoulder pain (Primary Dx) 12/07/2024 10:00 AM EDT Treatment [facility] [address] [phone] Noe Alexandre, FARM BOSS Chronic left shoulder pain (Primary Dx) 12/05/2024 3:30 PM EDT Treatment [address] [phone] Martha Greenwood, PT Chronic left shoulder pain (Primary Dx) 11/23/2024 4:13 PM EDT Anesthesia Event [facility] Endoscopy [address] [place] [phone] Arias Corrales MD 11/23/2024 2:04 PM EDT - 11/23/2024 11:59 PM EDT Hospital Encounter [facility] Endoscopy [address] [place] [phone] Ryan Patricia MD Dasilva, John E, MD Family hx of colon cancer; Family hx colonic polyps Discharge Disposition: Home or Self Care 11/21/2024 2:30 PM EDT Treatment [address] [phone] Noe Alexandre, FARM [employer] Chronic left shoulder pain (Primary Dx) 11/13/2024 10:30 AM EDT Office Visit Internal Medicine - [address] [phone] Liset Irizarry NP Alopecia (Primary Dx); Vitamin D deficiency; Family history of thyroid cancer 11/12/2024 3:15 PM EDT Office Visit Pulmonology - [address] [phone] Gm Spaulding MD Moderate persistent asthma, unspecified whether complicated (Primary Dx) from Last 3 Months Immunizations Immunization Administration Dates Next Due Hepatitis B (Cfukued-F-Srppj , Recombivax HB-Adult) 19yo and older 04/13/2010,10/10/2009,08/09/2006,2006 Pfizer SARS-CoV-2 COVID-19, mRNA, LNP-S, preservative free 07/01/2021,08/12/2020,07/22/2020 Td Tetanus diptheria (Tdvax) 7yo and older 09/12/2020,11/04/2003 Tdap Tetanus diptheria acell ular pertussis (Boostrix; Adacel) 7yo and older 10/10/2009 Surgical History Surgery Date Site/Laterality Comments SECTION PROCEDURE: SECTION BLADDER STONE REMOVAL PROCEDURE:BLADDER STONE REMOVAL TUBAL LIGATION PROCEDURE: HISTORICAL TUBAL LIGATION SECTION PROCEDURE: HISTORICAL DELIVERY; COMMENT: x2 BREAST BIOPSY PROCEDURE: BX BREAST; PERC NEEDLE CORE W/IMAG GUID UPPER GASTROINTESTINAL ENDOSCOPY 2012 PROCEDURE: MA UPPER GI ENDOSCOPY PERFORMED; COMMENT: normal; done to evaluate hematemesis. COLONOSCOPY 2012 PROCEDURE: HISTORICAL COLONOSCOPY; COMMENT: normal; done to evaluate hematochezia. UPPER GASTROINTESTINAL ENDOSCOPY 02/24/2010 PROCEDURE: MA UPPER GI ENDOSCOPY PERFORMED; COMMENT: Normal on PPI rx. COLONOSCOPY 05/23/2019 PROCEDURE: HISTORICAL COLONOSCOPY; COMMENT: Normal. UPPER GASTROINTESTINAL ENDOSCOPY 05/23/2019 PROCEDURE: MA UPPER GI ENDOSCOPY PERFORMED; COMMENT: Visually normal, duodenal biopsies obtained: Normal. Medical History Medical History Date Comments Migraines DX:Migraines Fibromyalgia DX:Fibromyalgia Obesity, unspecified 05/25/2005 DX:Obesity, unspecified Anxiety state, unspecified 07/11/2006 DX:An xiety state, unspecified Depressive disorder, not els ewhere classified 09/13/2006 DX:Depressive disorder, not elsewhere classified Allergic rhinitis, cause unspecified 09/13/2006 DX:Allergic rhinitis, cause unspecified Amblyopia, unspecified DX:Amblyo michelle, unspecified; COMMENT: OS ARMD (age related macular degeneration) 01/06/2016 DX:ARMD (age related macular degeneration) Fibromyalgia DX:Fibromyalgia Vitamin D deficiency 09/27/2014 DX:Vitamin D deficiency Retinopathy 09/01/2011 DX:Retinopathy Onychomycosis 01/22/2015 DX:Onychomycosis Migraine with aura 09/30/2006 DX:Migraine w ith aura; COMMENT: CT head 2005 negative cpx 10/10/09- imitrex works for her IMO update Insomnia 09/30/2006 DX:Insomnia Heartburn 10/10/2009 DX:Heartburn; CO MMENT: cpx 10/10/09- omeprazole works for her. Normal upper GI endoscopy on PPI treatment 02/24/2010. COVID-19 virus infection 04/29/2020 DX:COVI D-19 virus infection Esophageal reflux DX:Esophageal reflux Swallowing difficulty DX:Swallow ing difficulty Epigastric pain DX:Epigastric pa in Early satiety DX:Early satiety Constipation DX:Constipation Gastritis DX:Gastritis Diabetes mellitus type 2, co ntrolled, with complications (CMS/HCC V24, CMS/HCC V28) DX:Diabetes mellitus type 2, controlled, with complications ([facility]) Cardiac microvascular disease 02/21/2023 DX :Cardiac microvascular disease Asthma 02/21/2023 DX:Asthma Primary hypertension 07/29/2023 DX:Primary hypertension Dysphagia DX:Dysphagia Family History Medical History Relation Name Comments Breast cancer Aunt Heart attack Father Colon polyps Mother 2 dozen polyps Hypertension Mother Thyroid cancer Mother Colon cancer Paternal Grandfather Colon cancer Sister Leyea Ovarian cancer Sister Leyea Relation Name Status Comments Aunt Father (Age 23) heart prob lems Father's side heart problems Mother Alive endometriosis Paternal Grandfather Sister Leyea Alive Social History Tobacco Use Types Packs/Day Years Used Date Smoking Tobacco: Never Smokeless Tobacco: Never Tobacco Cessation:Counseling Given: Not Answered Alcohol Use Standard Drinks/Week Comments Yes 1 [...] Orientation Straight 05/25/2024 2: 25 PM EST Obstetrics History Para Term AB IAB SAB Ectopic Multiple Livin g Live Births 2 2 2 0 0 1 3 3 Date Outcome GA Total Labor Labor/2nd/3rd Weight Sex Type Anes PTL Tosha A1 A5 Name Clin 1984 Term 40w 0d 2637 g (93 oz) F CS-Un spec Living 1985 Term 40w 0d 2807 g (99 oz) F CS-Un spec Living 1988 Term 40w 0d 2778 g (98 oz) F CS-Un spec Living Last Filed Vital Signs Vital Sign Reading Time Taken Comments Blood Pressure 120/83 01/21/2025 10:57 AM EDT A Pulse 70 01/21/2025 10:57 AM EDT Temperature 36.3 C (97.3 F) 12/27/2024 5:40 PM EDT Respiratory Rate 18 12/27/2024 5:40 PM EDT Oxygen Saturation 98% 12/27/2024 5:40 PM EDT Inhaled Oxygen Concentration - - Weight 76.4 kg (168 lb 6.9 oz) 01/21/2025 10:57 AM EDT Height 165.1 cm (5' 5 ) 01/21/2025 10:57 AM EDT Body Mass Index 28.03 01/21/2025 10:57 AM EDT Plan of Treatment Upcoming Encounters Date Type Department Care Team (Late st Contact Info) Description 02/19/2025 10:00 AM EST Office Visit Obstetrics and Gynecology - [address] [phone] Kisha Mei, [address] [phone] 05/15/2025 2:15 PM EST Office Visit Pulmonology - [place] [address] [phone] Gm Spaulding MD [address] [facility] [address] [place] [address] Health Maintenance Due Date Last Done Comments Pneumococcal Vaccine: 50+ Years (1 of 2 - PCV) 1985 RSV Immunization Adult Patients (1 - Risk 50-74 years 1-dose series) 2016 Zoster Vaccines (1 of 2) 2016 HIV Screening 03/27/2022 Social Influencers of Health Screening 03/27/2022 Depression Screening 04/18/2024 COVID-19 Vaccine ( season) 2024 07/01/2021, 06/02/2021, 08/12/2020, Additional history exists Influenza Vaccine (#1) 2024 Hypertension/CHF/CAD Annual BMP Blood Test 12/27/2025 12/27/2024, 08/24/2024, 05/18/2024, Additional history exists Breast Cancer Screening 09/18/2026 09/19/19, 05/18/2023, 03/25/2022, Additional history exists Cervical Cancer Screening: HPV 11/02/2026 11/02/2021 Cholesterol Screening (Lipid Panel) 12/30/2027 12/29/2022 Colorectal Cancer Screening: Colonoscopy 11/23/2029 11/23/2024, 05/23/2019 DTaP,Tdap,and Td Vaccines (4 - Td or Tdap) 09/12/2030 09/12/2020, 10/10/2009, 11/04/2003 Hepatitis B Vaccines Completed 04/13/2010, 10/10/2009, 08/09/2006, Additional history exists Hepatitis C Screening Completed 08/17/2016 HIB Vaccines Aged Out No longer eligi ble based on patient's age to complete this topic HPV Vaccines Aged Out No longer eligi ble based on patient's age to complete this topic Hepatitis A Vaccines Aged Out No long er eligible based on patient's age to complete this topic IPV Vaccines Aged Out No longer eligi ble based on patient's age to complete this topic MMR Vaccines Aged Out No longer eligi ble based on patient's age to complete this topic Meningococcal ACWY Vaccine Aged Out N o longer eligible based on patient's age to complete this topic Meningococcal B Vaccine Aged Out No l onger eligible based on patient's age to complete this topic RSV Immunization Patients Under 20 months Aged Out No longer eligible based on patient's age to complete this topic Varicella Vaccines Aged Out No longer eligible based on patient's age to complete this topic Procedures Procedure Name Priority Date/Time Associated Diagnosis Comments CBC WITH AUTO DIFFERENTIAL STAT 12/27/2024 7:31 PM EDT CBC AND DIFFERENTIAL STAT 12/27/2024 7:31 PM EDT BASIC METABOLIC PANEL STAT 12/27/2024 7:[address] HEAD WO CONTRAST STAT 12/27/2024 6 :08 PM EDT XR HIP 2-3 VIEWS RIGHT Routine 12/18/2024 2:00 PM EDT Pain XR RIBS W CHEST 3+ VIEWS RIGHT Routine 12/18/2024 2:00 PM EDT Pain XR SHOULDER 2+ VIEWS RIGHT Routine 12/18/2024 1:59 PM EDT Pain in shoulder COLONOSCOPY Routine 11/23/2024 4:22 PM EDT Family hx of colon cancer Family hx colonic polyps CBC WITH AUTO DIFFERENTIAL Routine 11/13/2024 10:53 AM EDT Alopecia CBC AND DIFFERENTIAL Routine 11/13/2024 10:53 AM EDT Alopecia IRON AND TIBC Routine 11/13/2024 10:53 AM EDT Alopecia THYROID STIMULATING HORMONE WITH REFLEX TO FREE T4 AND FREE T3 Routine 11/13/2024 10:53 AM EDT Alopecia MG MAMMO DIGITAL SCREENING W ARNOLD BILAT Routine 09/18/2024 8:43 AM EDT Encounter for screening mammogram for breast cancer LIPID PANEL Routine 12/29/2022 HM HPV Routine 11/02/2021 HM HEPATITIS C SCREENING Routine 08/17/2016 from Last 3 Months or Most Recently Relevant to Health Maintenance Results * (ABNORMAL) CBC auto differential (12/27/2024 7:31 PM EDT) Only the most recent of2 resultswithin the time period is included. WBC 7.6 4.8 - 10.8 K/mcL LAB HEMETOLOGY METHOD 12/27/2024 7:44 PM EDT [facility] RBC 5.40(H) 3.80 - 4.80 M/mcL LAB HEMETOLOGY METHOD 12/27/2024 7:44 PM EDT [facility] Hemoglobin 15.6 11.5 - 16.0 g/dL LAB HEMETOLOGY METHOD 12/27/2024 7:44 PM EDT [facility] Hematocrit 47.2(H) 35.0 - 47.0 % LAB HEMETOLOGY METHOD 12/27/2024 7:44 PM EDT [facility] MCV 88.1 79.0 - 98.0 FL LAB HEMETOLOGY METHOD 12/27/2024 7:44 PM EDT [facility] MCH 29.1 27.0 - 32.0 pcg LAB HEM[facility]OLOG[facility] MCHC 33.1 32.0 - 37.0 g/dL LAB HEMETOLOGY METHOD 12/27[facility]24 7[facility] RDW 14.0 11.0 - 15.0 % LAB HEMETOLOGY METHOD 12/27/2024 7:44 PM EDT [facility] Platelets 278 130 - 400 K/mcL LAB HEMETOLOGY METHOD [facility]/27[facility]24 [facility] MPV 10.5 7.0 - 11.0 FL LAB HEMETOLOGY METHOD 12/27/2024 7[facility]44 [facility] NRBC 0.0 <1.0 % LAB HEMETOLOGY METHOD 12/27/2024 7:44 PM EDT [facility] NRBC Absolute 0.00 <0.10 K/mcL LAB HEMETOLOGY METHOD 12/27[facility]2024 7[facility] Neutrophils Relative 60.8 % LAB HEMETOLOGY METHOD 12/27/2024 7:44 [facility] Lymphocytes Relative 29.9 % LAB HEMETOLOGY METHOD 12/27/2024 7:44 PM EDT [facility] Monocytes Relative 6.4 % LAB HEMETOLOGY METHOD 12/27/2024 7:44 PM EDT [facility] Eosinophils Relative 1.6 % LAB HEMETOLOGY METHOD 12/27[facility]2024 7[facility]44 [facility] Basophils Relative 1.0 % LAB HEMETOLOGY METHOD 12/27/2024 7:44 [facility] Immature Granulocytes Relative 0.3 % LAB HEMETOLOGY METHOD 12/27/2024 7:44 [facility] Neutrophils Absolute 4.64 1.50 - 7.00 K/mcL LAB HEMETOLOGY METHOD 12/27/2024 7:44 [facility] Lymphocytes Absolute 2.28 1.00 - 5.00 K/mcL LAB HEMETOLOGY METHOD 12/27/2024 7:44 [facility] Monocytes Absolute 0.49 0.20 - 1.00 K/mcL LAB HEMETOLOGY METHOD 12/27/2024 7:44 [facility] Eosinophils Absolute 0.12 0.00 - 0.50 K/mcL LAB HEMETOLOGY METHOD 12/27/2024 7:44 PM [facility] Basophils Absolute 0.08 0.00 - 0.20 K/mcL LAB HEMETOLOGY METHOD 12/27/2024 7:44 PM T [facility] Immature Granulocytes Absolute 0.02 0.00 - 0.03 K/mcL LAB HEMETOLOGY METHOD 12/27/2024 7:44 PM [facility] Blood Venous blood specimen / Unknown Venipuncture / Unknown 12/27/2024 7:31 PM EDT 12/27/2024 7:37 PM EDT us Lázaro Jaffe MD LAB BLOOD ORDERABLES Final Res ult [facility] [address] [place] [address], * (ABNORMAL) Basic Metabolic Panel (BMP) (12/27/2024 7:31 PM EDT) Sodium 136 133 - 145 mmol/L LAB CHEMISTRY METHOD 12/27/2024 8:03 PM [facility] Potassium 4.6 3.5 - 5.5 mmol/L LAB CHEMISTRY METHOD 12/27/2024 8:03 PM [facility] Chloride 106 96 - 110 mmol/L LAB CHEMISTRY METHOD 12/27/2024 8:03 PM [facility] CO2 28 21 - 32 mmol/L LAB CHEMISTRY METHOD 12/27/2024 8:03 PM [facility] Anion Gap 2(L) 3 - 11 LAB CHEMISTRY METHOD 12/27/2024 8:03 PM [facility] Glucose 82 70 - 100 mg/dL LAB CHEMISTRY METHOD 12/27/2024 8:03 PM [facility] BUN 18 5 - 25 mg/dL LAB CHEMISTRY METHOD 12/27/2024 8:03 PM [facility] Creatinine 0.75 0.50 - 1.10 mg/dL LAB CHEMISTRY METHOD 12/27/2024 8:03 PM [facility] eGFR 92 >=60 mL/min/1. 73m2 LAB CHEMISTRY METHOD 12/27/2024 8:03 PM [facility] Comment:Calculation based on the Chronic Kidney Disease Epidemiology Collaboration (CKD-EPI) equation refit without adjustment for race. BUN/Creatinine Ratio 24.0 LAB CHEMISTRY METHOD 12/27/2024 8:03 PM [facility] Calcium 10.4 8.5 - 10.5 mg/dL LAB CHEMISTRY METHOD 12/27/2024 8:03 PM [facility] Blood Venous blood specimen / Unknown Venipuncture / Unknown 12/27/2024 7:31 PM EDT 12/27/2024 7:37 PM EDT us Lázaro Jaffe MD LAB BLOOD ORDERABLES Final Res ult [facility] ([facility] [address] [place] [address], [place] [phone] * CT Head wo Contrast (12/27/2024 6:08 PM EDT) Anatomical Region Laterality Modality Head and Neck Computed Tomogra phy 12/27/2024 6:26 PM EDT Impressions 12/27/2024 6:26 PM EDT Impression: 1. No acute intracranial abnormalities. This document has been electronically signed by: Hesham Farr MD on 12/27/2024 18:26:43 Narrative 12/27/2024 6:26 PM EDT INDICATION: Dizziness, non-specific CT head without contrast Comparison: None Findings: No intracranial mass, midline shift, hydrocephalus, or acute hemorrhage. No CT evidence of acute ischemia. Visualized paranasal sinuses and mastoid air cells normal. Orbits unremarkable. No skull fracture. Procedure Note Hesham Farr MD - 12/27/2024 INDICATION: Dizziness, non-specific CT head without contrast Comparison: None Findings: No intracranial mass, midline shift, hydrocephalus, or acute hemorrhage. No CT evidence of acute ischemia. Visualized paranasal sinuses and mastoid air cells normal. Orbits unremarkable. No skull fracture. IMPRESSION: Impression: 1. No acute intracranial abnormalities. This document has been electronically signed by: Hesham Farr MD on 12/27/2024 18:26:43 us Lázaro Jaffe MD IMG CT PROCEDURES Final Result * XR Hip 2-3 Views Right (12/18/2024 2:00 PM EDT) Anatomical Region Laterality Modality Lower Extremities, Hip Right Radiograp hic Imaging 12/18/2024 2:21 PM EDT Impressions 12/18/2024 2:21 PM EDT FINDINGS/IMPRESSION: No acute fracture or dislocation. -------- FINAL REPORT -------- Dictated By: Angelica Man Dictated Date: 12/18/2024 14:21 ET Assigned Physician: Angelica Man Reviewed and Electronically Signed By: Angelica Man Signed Date: 12/18/2024 14:21 ET Workstation ID: [id number] Transcribed By: Self Edit Transcribed Date: 12/18/2024 14:21 ET Narrative 12/18/2024 2:21 PM EDT XR HIP 2-3 VIEWS RIGHT INDICATION: pain TECHNIQUE: XR HIP 2-3 VIEWS RIGHT COMPARISON: No priors available. Procedure Note Angelica Man MD - 12/18/2024 XR HIP 2-3 VIEWS RIGHT INDICATION: pain TECHNIQUE: XR HIP 2-3 VIEWS RIGHT COMPARISON: No priors available. IMPRESSION: FINDINGS/IMPRESSION: No acute fracture or dislocation. -------- FINAL REPORT -------- Dictated By: Angelica Man Dictated Date: 12/18/2024 14:21 ET Assigned Physician: Angelica Man Reviewed and Electronically Signed By: Angelica Man Signed Date: 12/18/2024 14:21 ET Workstation ID: [id number] Transcribed By: Self Edit Transcribed Date: 12/18/2024 14:21 ET Cici Elizabeth SENIOR PROJECT ACCOUNTANT IMG XR PROCEDURES Final Result * XR Ribs w Chest 3+ Views Right (12/18/2024 2:00 PM EDT) Anatomical Region Laterality Modality Body Right Radiographic María ging 12/18/2024 2:20 PM EDT Impressions 12/18/2024 2:20 PM EDT FINDINGS/IMPRESSION: Normal heart size and pulmonary vascularity. Lungs are clear and costophrenic angles are sharp. No acute osseous abnormality. -------- FINAL REPORT -------- Dictated By: Angelica Man Dictated Date: 12/18/2024 14:20 ET Assigned Physician: Angelica Man Reviewed and Electronically Signed By: Angelica Man Signed Date: 12/18/2024 14:20 ET Workstation ID: [id number] Transcribed By: Self Edit Transcribed Date: 12/18/2024 14:20 ET Narrative 12/18/2024 2:20 PM EDT XR RIBS W CHEST 3+ VIEWS RIGHT INDICATION: pain TECHNIQUE: XR RIBS W CHEST 3+ VIEWS RIGHT COMPARISON: No priors available. Procedure Note Angelica Man MD - 12/18/2024 XR RIBS W CHEST 3+ VIEWS RIGHT INDICATION: pain TECHNIQUE: XR RIBS W CHEST 3+ VIEWS RIGHT COMPARISON: No priors available. IMPRESSION: FINDINGS/IMPRESSION: Normal heart size and pulmonary vascularity. Lungsare clear and costophrenic angles are sharp. No acute osseousabnormality. -------- FINAL REPORT -------- Dictated By: Angelica Man Dictated Date: 12/18/2024 14:20 ET Assigned Physician: Angelica Man Reviewed and Electronically Signed By: Angelica Man Signed Date: 12/18/2024 14:20 ET Workstation ID: [id number] Transcribed By: Self Edit Transcribed Date: 12/18/2024 14:20 ET Cici Elizabeth SENIOR PROJECT ACCOUNTANT IMG XR PROCEDURES Final Result * XR Shoulder 2+ Views Right (12/18/2024 1:59 PM EDT) Anatomical Region Laterality Modality Upper Extremities, Shoulder Right Radi ographic Imaging 12/18/2024 2:19 PM EDT Impressions 12/18/2024 2:19 PM EDT FINDINGS/IMPRESSION: No acute fracture or dislocation. -------- FINAL REPORT -------- Dictated By: Angelica Man Dictated Date: 12/18/2024 14:19 ET Assigned Physician: Angelica Man Reviewed and Electronically Signed By: Angelica Man Signed Date: 12/18/2024 14:19 ET Workstation ID: [id number] Transcribed By: Self Edit Transcribed Date: 12/18/2024 14:19 ET Narrative 12/18/2024 2:19 PM EDT XR SHOULDER 2+ VIEWS RIGHT INDICATION: pain TECHNIQUE: XR SHOULDER 2+ VIEWS RIGHT COMPARISON: No priors available. Procedure Note Angelica Man MD - 12/18/2024 XR SHOULDER 2+ VIEWS RIGHT INDICATION: pain TECHNIQUE: XR SHOULDER 2+ VIEWS RIGHT COMPARISON: No priors available. IMPRESSION: FINDINGS/IMPRESSION: No acute fracture or dislocation. -------- FINAL REPORT -------- Dictated By: Angelica Man Dictated Date: 12/18/2024 14:19 ET Assigned Physician: Angelica Man Reviewed and Electronically Signed By: Angelica Man Signed Date: 12/18/2024 14:19 ET Workstation ID: [id number] Transcribed By: Self Edit Transcribed Date: 12/18/2024 14:19 ET Cici Elizabeth NP IMG XR PROCEDURES Final Result * COLONOSCOPY Anesthesia - MAC; [facility] ENDOSCOPY (11/23/2024 4:22 PM EDT) Anatomical Region Laterality Modality Endoscopy 11/23/2024 4:14 PM EDT Impressions 11/23/2024 4:23 PM EDT - Preparation of the colon was poor. - Stool in the entire examined colon. - No specimens collected. Recommendation: - Discharge patient to home. - Repeat colonoscopy at the next available appointment because the bowel preparation was suboptimal. Narrative 11/23/2024 4:23 PM EDT [facility] GI Patient Name: Stu Brown Procedure Date: 11/23/2024 4:14 PM Date of : 1965 Age: 59 Gender: Female Note Status: Finalized Attending MD: Ryan Patricia MD, Procedure Date No Time: 11/23/2024 Procedure: Colonoscopy Indications: Screening in patient at increased risk: Family history of 1st-degree relative with colorectal cancer before age 60 years Providers: Ryan Patricia MD Referring MD: Ryan Patricia MD Medicines: Monitored Anesthesia Care Complications: No immediate complications. Estimated blood loss: None. Estimated Blood Loss: Estimated blood loss: none. Procedure: Pre-Anesthesia Assessment: - Prior to the procedure, a History and Physical was performed, and patient medications and allergies were reviewed. The patient is competent. The risks and benefits of the procedure and the sedation options and risks were discussed with the patient. All questions were answered and informed consent was obtained. Patient identification and proposed procedure were verified by the physician, the nurse, the master machinist and the instrument room technician in the pre-procedure area in the endoscopy suite. Mental Status Examination: alert and oriented. Airway Examination: normal oropharyngeal airway and neck mobility. Respiratory Examination: clear to auscultation. CV Examination: normal. Prophylactic Antibiotics: The patient does not require prophylactic antibiotics. Prior Anticoagulants: The patient has taken no anticoagulant or antiplatelet agents. ASA Grade Assessment: II - A patient with mild systemic disease. After reviewing the risks and benefits, the patient was deemed in satisfactory condition to undergo the procedure. The anesthesia plan was to use monitored anesthesia care (MAC). Immediately prior to administration of medications, the patient was re-assessed for adequacy to receive sedatives. The heart rate, respiratory rate, oxygen saturations, blood pressure, adequacy of pulmonary ventilation, and response to care were monitored throughout the procedure. The physical status of the patient was re-assessed after the procedure. After I obtained informed consent, the scope was passed under direct vision. Throughout the procedure, the patient's blood pressure, pulse, and oxygen saturations were monitored continuously. The Olympus Colonoscope was introduced through the anus with the intention of advancing to the cecum. The scope was advanced to the transverse colon before the procedure was aborted. Medications were given. The colonoscopy was performed without difficulty. The patient tolerated the procedure well. The quality of the bowel preparation was poor. Findings: The perianal and digital rectal examinations were normal. A large amount of semi-liquid solid stool was found in the entire colon, precluding visualization. Procedure Code(s): --- Professional --- G0105, 53, Colorectal cancer screening; colonoscopy on individual at high risk Diagnosis Code(s): --- Professional --- Z80.0, Family history of malignant neoplasm of digestive organs CPT copyright 2020 [employer]. All rights reserved. The codes documented in this report are preliminary and upon flame planer review may be revised to meet current compliance requirements. Ryan Patricia MD 11/23/2024 4:23:06 PM This report has been signed electronically.Ryan Patricia MD Number of Addenda: 0 Note Initiated On: 11/23/2024 4:14 PM Scope In: 4:18:39 PM Scope Out: 4:21:20 PM Endoscopy Department at [facility] - [address] [place] [phone] Procedure Note Ryan Patricia MD - 11/23/2024 [facility] GI Patient Name: Stu Brown Procedure Date: 11/23/2024 4:14 PM Date of : 1965 Age: 59 Gender: Female Note Status: Finalized Attending MD: Ryan Patricia MD, Procedure Date No Time: 11/23/2024 Procedure: Colonoscopy Indications: Screening in patient at increased risk: Familyhistory of 1st-degree relative with colorectal cancerbefore age 60 years Providers: Ryan Patricia MD Referring MD: Ryan Patricia MD Medicines: Monitored Anesthesia Care Complications: No immediate complications. Estimated blood loss:None. Estimated Blood Loss: Estimated blood loss: none. Procedure: Pre-Anesthesia Assessment: - Prior to the procedure, a History and Physicalwas performed, and patient medications and allergieswere reviewed. The patient is competent. The risks and benefits of the procedure and the sedation optionsand risks were discussed with the patient. Allquestions were answered and informed consent was obtained. Patient identification and proposed procedure were verified by the physician, the nurse, theanesthetist and the instrument room technician in the pre-procedure area in the endoscopy suite. Mental Status Examination: alertand oriented. Airway Examination: normal oropharyngeal airway and neck mobility. Respiratory Examination: clear to auscultation. CV Examination: normal. Prophylactic Antibiotics: The patient does notrequire prophylactic antibiotics. Prior Anticoagulants: The patient has taken no anticoagulant or antiplatelet agents. ASA Grade Assessment: II - A patient withmild systemic disease. After reviewing the risks and benefits, the patient was deemed in satisfactory condition to undergo the procedure. The anesthesia plan was to use monitored anesthesia care (MAC). Immediately prior to administration of medications, the patient was re-assessed for adequacy to receive sedatives. The heart rate, respiratory rate, oxygen saturations, blood pressure, adequacy of pulmonary ventilation, and response to care were monitored throughout the procedure. The physical status ofthe patient was re-assessed after the procedure. After I obtained informed consent, the scope was passed under direct vision. Throughout theprocedure, the patient's blood pressure, pulse, and oxygen saturations were monitored continuously. TheOlympus Colonoscope was introduced through the anus withthe intention of advancing to the cecum. The scope was advanced to the transverse colon before theprocedure was aborted. Medications were given. Thecolonoscopy was performed without difficulty. The patient tolerated the procedure well. The quality of thebowel preparation was poor. Findings: The perianal and digital rectal examinations were normal. A large amount of semi-liquid solid stool was foundin the entire colon, precluding visualization. Procedure Code(s): --- Professional --- G0105, 53, Colorectal cancer screening; colonoscopyon individual at high risk Diagnosis Code(s): --- Professional --- Z80.0, Family history of malignant neoplasm of digestive organs CPT copyright 2020 [employer]. All rights reserved. The codes documented in this report are preliminary and upon flame planer reviewmay be revised to meet current compliance requirements. Ryan Patricia MD 11/23/2024 4:23:06 PM This report has been signed electronically.Ryan Patricia MD Number of Addenda: 0 Note Initiated On: 11/23/2024 4:14 PM Scope In: 4:18:39 PM Scope Out: 4:21:20 PM Endoscopy Department at [address] [id number] IMPRESSION: - Preparation of the colon was poor. - Stool in the entire examined colon. - No specimens collected. Recommendation: - Discharge patient to home. - Repeat colonoscopy at the next availableappointment because the bowel preparation was suboptimal. us Ryan Patricia MD GI~PROCEDURE ORDERABLES Fin al Result * Thyroid stimulating hormone with reflex to free t4 and free t3 (11/13/2024 10:53 AM EDT) TSH 2.17 0.40 - 4.00 mcIU/mL LAB CHEMISTRY METHOD 11/13/2024 5:24 PM EDT [facility] ([facility]) [facility] Blood Venous blood specimen / Unknown Venipuncture / Unknown 11/13/2024 10:53 AM EDT 11/13/2024 10:53 AM EDT Liset Irizarry NP LAB BLOOD ORDERABLES Final Resu lt Performing Organization Address [facility]/ZIP Co de Phone Number [facility] [address] [place] [address], [place] [phone] * Iron and TIBC (11/13/2024 10:53 AM EDT) Iron 97 40 - 150 mcg/dL LAB CHEMISTRY METHOD 11/13/2024 4:56 PM EDT [facility] TIBC 385 250 - 450 mcg/dL LAB CHEMISTRY METHOD 11/13/2024 4:56 PM EDT [facility] Iron Saturation 25 15 - 50 % LAB CHEMISTRY METHOD 11/13/2024 4:56 PM EDT [facility] Blood Venous blood specimen / Unknown Venipuncture / Unknown 11/13/2024 10:53 AM EDT 11/13/2024 10:53 AM EDT Liset Irizarry NP LAB BLOOD ORDERABLES Final Resu lt Performing Organization Address [facility] de Phone Number [facility] [address] [place] [address], [place] [phone] * MG Mammo Digital Screening w Arnold bilat (09/18/2024 8:43 AM EDT) Anatomical Region Laterality Modality Breast Bilateral Mammography 09/18/2024 4:49 PM EDT Impressions 09/18/2024 4:52 PM EDT No mammographic evidence of malignancy. BREAST DENSITY: B - There are scattered areas of fibroglandular density. BI-RADS CATEGORY: 1 - NEGATIVE RECOMMENDATION: Screening bilateral mammogram is recommended in 1 year. MAMMO LOCATION: [facility], [address] [place] [address], [id number], . -------- FINAL REPORT -------- Dictated By: Terra Cruz Dictated Date: 09/18/2024 16:49 ET Assigned Physician: Terra Cruz Reviewed and Electronically Signed By: Terra Cruz Signed Date: 09/18/2024 16:52 ET Workstation ID: [id number] Transcribed By: Self Edit Transcribed Date: 09/18/2024 16:49 ET Narrative 09/18/2024 4:52 PM EDT EXAM: Screening Mammogram CLINICAL: 59 years old, Female, routine annual exam. History of a benign left core biopsy on 08/26/2016. COMPARISON: 05/18/2023 and as far back as 03/18/2020 TECHNIQUE: Bilateral MLO and CC views were obtained digitally with 3-D mammogram (digital breast tomosynthesis). Computer-aided detection was utilized in evaluation of this exam (CAD). FINDINGS: No new suspicious mass, architectural distortion, or suspicious calcifications. Biopsy clip again noted in the anterior lower left breast. Procedure Note Terra Cruz MD - 09/18/2024 EXAM: Screening Mammogram CLINICAL: 59 years old, Female, routine annual exam. History of a benignleft core biopsy on 08/26/2016. COMPARISON: 05/18/2023 and as far back as 03/18/2020 TECHNIQUE: Bilateral MLO and CC views were obtained digitally with 3-Dmammogram (digital breast tomosynthesis). Computer-aided detection wasutilized in evaluation of this exam (CAD). FINDINGS: No new suspicious mass, architectural distortion, or suspiciouscalcifications. Biopsy clip again noted in the anterior lower leftbreast. IMPRESSION: No mammographic evidence of malignancy. BREAST DENSITY: B - There are scattered areas of fibroglandular density. BI-RADS CATEGORY: 1 - NEGATIVE RECOMMENDATION: Screening bilateral mammogram is recommended in 1 year. MAMMO LOCATION: [facility], [address] [place] [address], [id number], . -------- FINAL REPORT -------- Dictated By: Terra Cruz Dictated Date: 09/18/2024 16:49 ET Assigned Physician: Terra Cruz Reviewed and Electronically Signed By: Terra Cruz Signed Date: 09/18/2024 16:52 ET Workstation ID: [id number] Transcribed By: Self Edit Transcribed Date: 09/18/2024 16:49 ET Nadeem Mendosa MD IMG BI PROCEDURES Final Result * Lipid panel (12/29/2022) LDL/HDL Ratio 3 0 - 4 Triglycerides 142 0 - 150 mg/dL Cholesterol 185 0 - 200 mg/dL HDL 61 >=40 mg/dL LDL Cholesterol 96 0 - 100 mg/dL Blood Venous blood specimen / Unknown Result [facility] Historical Provider LAB BLOOD ORDERABLES Aleah l Result * Cervical Cancer Screening: HPV (11/02/2021) Cervical Cancer Screening: HPV abstracted ,negative Historical Provider HEALTH MAINTENANCE Final Result * Hepatitis C Screening (08/17/2016) Hepatitis C Screening abstracted Historical Provider HEALTH MAINTENANCE Final Result from Last 3 Months or Most Recently Relevant to Health Maintenance Insurance [facility] [place] [facility] [place] [phone] [place] - [place] Advance Directives Documents on File Type Date Recorded Patient Regional Trainer Expl anation Health Care Decision (hx) 03/29/2019 AD LOPEZ DIRECTIVE Health Care Decision (hx) 03/29/2019 AD LOPEZ DIRECTIVE Health Care Decision (hx) 03/29/2019 AD LOPEZ DIRECTIVE Health Care Decision (hx) 03/29/2019 AD LOPEZ DIRECTIVE Health Care Decision (hx) 03/29/2019 AD LOPEZ DIRECTIVE Health Care Decision (hx) 03/29/2019 AD LOPEZ DIRECTIVE Health Care Decision (hx) 03/29/2019 AD LOPEZ DIRECTIVE Health Care Decision (hx) 03/29/2019 AD LOPEZ DIRECTIVE Health Care Decision (hx) 03/29/2019 AD LOPEZ DIRECTIVE Health Care Decision (hx) 03/29/2019 AD LOPEZ DIRECTIVE Health Care Decision (hx) 03/29/2019 AD LOPEZ DIRECTIVE Health Care Decision (hx) 03/29/2019 AD LOPEZ DIRECTIVE Health Care Decision (hx) 03/29/2019 AD LOPEZ DIRECTIVE Health Care Decision (hx) 03/29/2019 AD LOPEZ DIRECTIVE Health Care Decision (hx) 03/29/2019 AD LOPEZ DIRECTIVE Health Care Decision (hx) 03/29/2019 AD LOPEZ DIRECTIVE Health Care Decision (hx) 03/29/2019 AD LOPEZ DIRECTIVE Health Care Decision (hx) 03/29/2019 AD LOPEZ DIRECTIVE Health Care Decision (hx) 03/29/2019 AD LOPEZ DIRECTIVE Health Care Decision (hx) 03/29/2019 AD LOPEZ DIRECTIVE Health Care Decision (hx) 03/29/2019 AD LOPEZ DIRECTIVE Care Teams News Photographer Relationship Specialty Start Date End Date Nadeem Mendosa MD [address] [place] [id number] PCP - General Internal Medicine 12/31/14
--- OUTSIDE RECORDS SUMMARY | 2025-02-08 08:24 | XMS_ITS | Clinical Summary ---
Author Organization [facility] Address [address] [place] [address] Care Team Providers Care Chief Electrician Name Role Phone Nadeem Mendosa MD Primary Care Provider [phone] Allergies Active Allergy Reactions Criticality Noted Date Comments Fluconazole 06/27/2007 Red face, rash Sulfa Antibiotics 01/23/2015 Other reaction(s): Rash/Dermatitis Medications Medication Sig Dispensed Refills Start Date End Date Status traZODone (DESYREL) 100 MG tablet TK 2 AND 1/2 TS PO HS 5 10/04/2018 Active meloxicam (MOBIC) 7.5 MG tablet TAKE 1 TABLET(7.5 MG) BY MOUTH DAILY NEEDED FOR PAIN 90 tablet 0 10/23/2018 Active DULoxetine (CYMBALTA) DR capsule 60 mg Take 1 capsule (60 mg total) by mouth daily. 0 07/26/2018 Active clonazePAM (KlonoPIN) 1 MG tablet Take 1 tablet (1 mg total) by mouth 2 (two) times a day as needed for anxiety. 0 Active gabapentin (NEURONTIN) 100 MG capsule Take 1 capsule (100 mg total) by mouth 3 (three) times a day. 0 Active Active Problems No known active problems Family History Medical History Relation Name Comments Hypertension Mother Relation Name Status Comments Mother Social History Tobacco Use Types Packs/Day Years Used Date Smoking Tobacco: Never Smokeless Tobacco: Never Tobacco Cessation:Counseling Given: Not Answered Alcohol Use Standard Drinks/Week Comments Yes 1 (1 standard drink = 0.6 oz pur e alcohol) social Sex and Gender Information Value Date Recorded Sex Assigned at Not on file Gender Identity Not on file Sexual Orientation Not on file Job Start Date Occupation Industry Not on file Not on file Not on file Last Filed Vital Signs Vital Sign Reading Time Taken Comments Blood Pressure 111/75 02/25/2023 1:38 PM EST Pulse 59 02/25/2023 1:38 PM EST Temperature 36.8 C (98.2 F) 02/25/2023 1:38 PM EST Respiratory Rate - - Oxygen Saturation 99% 02/25/2023 1:38 PM EST Inhaled Oxygen Concentration - - Weight 70.3 kg (155 lb) 02/25/2023 1:38 PM EST Height 162.6 cm (5' 4 ) 02/25/2023 1:38 PM EST Body Mass Index 26.61 02/25/2023 1:38 PM EST Plan of Treatment Health Maintenance Due Date Last Done Comments Hepatitis C Screening 1966 Depression Screening 1978 Preventative Health Evaluation 1984 Cervical Cancer Screening (Pap Smear) 08/15/1987 Colon Cancer Screening (Colonoscopy) 08/15/2011 Breast Cancer Screening (Mammogram) 2016 Shingrix-Zoster Vaccine (1 o f 2) 2016 DTap / Tdap / Td (2 - Td or Tdap) 10/11/2019 10/10/2009 COVID-19 Vaccine (4 - 2024-2 6 season) 2024 07/01/2021, 08/12/2020, 07/22/2020 Influenza Vaccine (#1) 2024 Hepatitis B Vaccines Completed 10/10/2009, 08/09/2006, 07/11/2006 Pneumococcal Vaccine Aged Out No long er eligible based on patient's age to complete this topic RSV Ped < 20 months Aged Out No longe r eligible based on patient's age to complete this topic Care Teams Chief Electrician Relationship Specialty Start Date End Date Nadeem Mendosa MD PCP - General Internal Medicine 10/23/18
--- OUTSIDE RECORDS SUMMARY | 2025-02-08 08:25 | XMS_ITS ---
Author Name [facility] Organization Unknown Encounters Encounter Type Encounter Reason Primary Diagnosis Location Date Ambulatory [facility] 01/27/2024 Care Team Organization Name Specialty Phone Email Start Date End Da te [facility] 2024 [facility] Nadeem Mendosa Primary Care 02/23/2022 12/05/19 24
[2025-02-08 08:33] VITALS: BP 112/85; PULSE 71; RESP 16; O2SAT 93; BMI 27.3
--- NOTE | 2025-02-08 08:33 | MHC.OFFVIS ---
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 She was last seen by Dr. iLndo in July of 2024. She follows for migraine, fibromyalgia, and insomnia. 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 MRI of the brain October 2025: 4-5 punctate white matter hyperintensities, nonspecific According to the patient today, she missed a recent follow-up with . She wanted to discuss worsening and a change in her her headaches. Her typical headaches were frontal and occipital associated with light and sound sensitivity. More recently she has additional pain to the bilateral postauricular areas. She continues to have light and sound sensitivity as well as nausea. She has been experiencing head pain daily and this has been daily for the last 2 months. Prior to 2 months ago she was having 3-4 migraine headaches per week with some less intense headaches a couple times per week as well. When she first started on the Aimovig she felt that it was working well with only one mild migraine per month. She last took her Aimovig in the begining of January. [facility] Medical History (Updated 02/10/25 @ 21:50 by Zuleima Garcia CNP) Peroneal neuropathy Small fiber neuropathy Low back pain Fibromyalgia Cervical paraspinal muscle spasm Insomnia Depression Stress Anxiety Migraine Chronic daily headache Review of Systems Const All systems reviewed & are unremarkable except as noted in HPI and below Physical Exam Vital Signs: Last Vital Signs Pulse 71 02/08/25 08:33 Resp 16 02/08/25 08:33 BP 112/85 02/08/25 08:33 Pulse Ox 93 02/08/25 08:33 Oxygen Delivery Method Room Air 02/08/25 08:33 BMI result Body Mass Index 27.3 Const General: cooperative, healthy appearing, comfortable and no acute distress Nutritional Appearance: well nourished Orientation/consciousness: patient oriented x3 Limitations: no limitations HEENT Head: Yes normal to inspection and Yes normocephalic Eyes General: appearance normal, both eyes and all related structures Visual Mccartney: normal visual mccartney by confrontation Alignment and Position: alignment normal Periorbital: periorbital findings normal Eyelids: Yes eyelids normal Conjunctivae: conjunctivae normal Sclerae: sclerae normal Neuro General: patient oriented x3 and deep tendon reflexes 2+ bilaterally Cranial nerves: Yes CN's II-XII intact bilaterally and Yes Facial sensation intact/muscles of mastication intact Cognition (Neuro): normal cognition Gait exam (Neuro): Normal gait present Motor exam (neuro): 5/5 motor strength present throughout and no tremor noted Sensory Exam: double simultaneous stimulation for sensation normal Romberg Test: Negative Pupils: Normal pupillary reactivity/response: bilateral Psych Appearance: grossly normal Mental Status: mental status grossly normal Speech and movement: Normal speech and movement present and Clear speech present Affect: normal affect Attitude: cooperative Thought process: Normal thought process present Thought content: Normal thought content present Insight: Good insight present (Psych) Judgement: Good judgement present (Psych) Assessment & Plan Assessment & Plan (1) Migraine without aura and without status migrainosus, not intractable: Code(s): G43.009 - Migraine without aura, not intractable, without status migrainosus Category: Medical Plan Ghazal is a 59-year-old female patient with a past medical history of insomnia, depression, anxiety, and fibromyalgia in the clinic for chronic headache. She recently has experienced an uptake in her migraines and is looking for acute therapy as well as improved long-term management. We will discontinue her Aimovig and start her on a trial of Emgality. For acute therapy, we will start her on a prednisone taper and have encouraged rest, hydration, and staying home from work with low overall stimulation in her activities of daily life over the course of the next week or so. Currently her fibromyalgia and insomnia are stable. We can review these more in-depth at subsequent visits once her migraines (more pressing matter) are better addressed -prednisone for acute therapy -discontinue Aimovig -trial of Emgality (loading dose 240 mg and then 120 mg monthly) Medications: New prednisone Day1: Take 3 tablets by mouth in the morning Day2: Take 2 tablets by mouth in the morning Day3: Take 1 tablet by mouth in the morning Day4: Take 1/2 tablet by mouth in the morning Day5: Take 1/2 tablet by mouth in the morning 7 tabs 0RF galcanezumab-gnlm (Emgality Pen) Loading dose 240 mg (2 mL) subcut ONCE 2 mL 0RF galcanezumab-gnlm (Emgality Pen) 120 mg subcut QMONTH 1 mL 4RF Coding Level of Care Code Est Pt Level 4 (34230) Diagnoses Migraine without aura and without status migrainosus, not intractable G43.009
== END 2025-02-08 09:18 | disposition home or self-care (01) ==
LOC: HO.HSM 08:09
PROVIDERS: PCP Internal Medicine; Visit Provider Nurse Practitioner
DX: G43.009 Migraine without aura, not intractable, without status migrainosus (principal)
CPT/HCPCS: 99214

== ENCOUNTER 2025-04-08 07:45 | Outpatient (AMB) | payer OTHER, MEDICAID, SELFPAY ==
--- OUTSIDE RECORDS SUMMARY | 2025-04-08 07:48 | XMS_ITS | Clinical Summary ---
Author Organization [address] Address [address] [place] [phone] Phone Care Team Providers Care Door Serviceman Name Role Phone Nadeem Mendosa MD Primary Care Provider [phone] Allergies Active Allergy Reactions Criticality Noted Date Comments Fluconazole 06/27/2007 Red face, rash Sulfa (Sulfonamide Antibiotics) Rash 01/23/2015 Other reaction(s): Rash/Dermatitis Medications acetaminophen (TYLENOL 8 HOUR) 650 mg 8 hr tablet Take 1 Tablet by mouth 3 times daily for 30 days. 03/28/20 23 Active clonazePAM (KlonoPIN) 1 mg tablet 03/11/20 23 Active ketotifen (ZADITOR) 0.025 % ophthalmic solution 03/11/20 23 Active albuterol HFA (PROAIR HFA ; PROVENTIL HFA ; VENTOLIN HFA) 90 mcg/actuation inhaler Inhale 2 Puffs into the lungs 4 times daily as needed for Cough, Wheezing or Shortness of Breath. 03/16/20 23 Active amLODIPine (NORVASC) 2.5 mg tablet Take 1 tablet (2.5 mg total) by mouth 1 (one) time each day. 02/22/20 23 Active neomycin-polymyxi n-hydrocortisone (CORTISPORIN) 3.5-10,000-1 mg/mL-unit/mL-% otic suspension Administer 3 drops into affected ear(s). 02/16/20 23 Active estradioL (ESTRACE) 0.01 % (0.1 mg/gram) vaginal cream Start after finishing Miconazole treatment. Use 0.5 finger tip application nightly for 2 weeks, then reduce to 0.5 fingertip application twice a week 02/16/20 Active loratadine (CLARITIN) 10 mg tablet Take 1 tablet (10 mg total) by mouth. 10/14/19 Active erenumab-aooe (Aimovig Autoinjector) 140 mg/mL injection INJECT 1 ML SUBCUTANEOUSLY MONTHLY 90 12/22/19 Active triamcinolone (NASACORT) 55 mcg nasal inhaler Administer 1 spray into each nostril 1 (one) time each day. 01/13/20 Active mupirocin (BACTROBAN) 2 % ointment APPLY 2 TIMES DAILY FOR 10 DAYS 01/05/20 Active nitroglycerin (NITROSTAT) 0.[address] 1 tablet (0.4 mg total) under the tongue every 5 (five) minutes if needed. 01/05/20 Active diclofenac (VOLTAREN) 75 mg EC tablet Take 1 tablet (75 mg total) by mouth 2 (two) times a day. 12/08/19 Active clotrimazole-beta methasone (LOTRISONE) 1-0.05 % cream APPLY SPARINGLY TO AFFECTED AREA TWICE A DAY FOR UP TO 2 WEEKS 11/25/19 Active pantoprazole (PROTONIX) 40 mg EC tablet TAKE 1 TABLET BY MOUTH DAILY. TAKE IN AM ON EMPTY STOMACH, WAIT 30 MINS AND THEN EAT TO ACTIVATE THE MEDICATION 11/16/19 Active ketotifen (ZADITOR) 0.025 % ophthalmic solution Administer 2 drops into affected eye(s). 09/01/19 Active sulindac (CLINORIL) 150 mg tablet Take 1 tablet (150 mg total) by mouth 2 (two) times a day. 07/14/19 Active psyllium (Daily Fiber, psyllium-aspart,) 3.4 gram packet Take 1 packet by mouth. 12/24/19 Active mometasone (ELOCON) 0.1 % ointment Apply half a fingertip amount to the vulva nightly x2 weeks 05/17/19 Active meloxicam (MOBIC) 7.5 mg tablet TAKE 1 TABLET(7.5 MG) BY MOUTH DAILY NEEDED FOR PAIN 10/24/19 Active gabapentin (NEURONTIN) 300 mg capsule Take 300 mg by mouth 3 times daily. Active cyclobenzaprine (FLEXERIL) 10 mg tablet TAKE 1 TABLET BY MOUTH THREE TIMES A DAY NEEDED FOR MUSCLE SPASM 08/19/19 24 Active aluminum-magnesiu m hydroxide-simethi cone (MAALOX) 200-200-20 mg/5 mL suspension Take 15 mL by mouth 4 times daily as needed for Other (heartburn). 10/31/19 24 Active hydrocortisone (ANUSOL-HC) 2.5 % rectal cream Apply 1 Act topically 3 times daily. 09/28/19 24 Active rizatriptan (MAXALT-MANAGER BASKETBALL) 10 mg disintegrating tablet Take 1 Tablet by mouth as needed. May repeat in 2 hours if needed Active COOL MIST HUMIDIFIER MISC 0.8 Gallons by Does not apply route daily as needed (congestion). 08/01/19 23 Active capsaicin (ZOSTRIX) 0.025 % cream Apply topically 4 (four) times a day if needed (pain). 60 g 03/28/20 24 Active metoprolol tartrate (LOPRESSOR) 25 mg tablet TAKE 1/2 TABLET TWICE A DAY BY MOUTH 90 tablet 1 04/09/20 24 Active traZODone (DESYREL) 100 mg tablet Take 1 tablet (100 mg total) by mouth at bedtime. 30 each 2 04/20/19 25 Active plecanatide (Trulance) 3 mg tablet Take 1 tablet (3 mg total) by mouth 1 (one) time each day. 30 tablet 11 05/18/19 25 Active azelastine (ASTELIN) 137 mcg (0.1 %) nasal sprayIndications: Other seasonal allergic rhinitis 2 SPRAYS BY EACH NARE ROUTE 2 TIMES DAILY. USE IN EACH NOSTRIL DIRECTED 90 mL 3 07/04/19 25 Active diclofenac (VOLTAREN) 1 % topical gel APPLY 4 GRAMS TOPICALLY TWICE DAILY 100 g 2 08/31/19 25 Active famotidine (PEPCID) 20 mg tabletIndications :Shortness of breath TAKE 1 TABLET BY MOUTH 2 TIMES DAILY NEEDED FOR HEARTBURN. 180 tablet 3 09/04/19 25 Active meclizine (ANTIVERT) 25 mg tablet TAKE 1 TABLET BY MOUTH EVERY 6 HOURS NEEDED FOR VERTIGO 90 tablet 09/14/19 25 Active oxyBUTYnin XL (DITROPAN-XL) 5 mg 24 hr tablet Take 1 tablet (5 mg total) by mouth 1 (one) time each day. Do not crush, chew, or split. 30 tablet 5 10/17/19 25 026 Active polyethylene glycol (Golytely) 236-22.74-6.74 -5.86 gram solution Take 4L by mouth once for one dose. May substitue any PEG. Starting at 2PM the day before your procedure drink 1 8oz glasses at your own pace until you complete half of the gallon. Finish 2nd half of the gallon at 8PM. 4000 mL 11/10/19 25 Active bisacodyL (DULCOLAX) 5 mg EC tablet Take 2 tablets by mouth right before beginning bowel prep. See instructions provided by the office 2 tablet 11/10/19 25 Active butalbital-acetam inophen-caffeine (FIORICET, ESGIC) 50-325-40 mg per tablet Take 1 tablet by mouth 2 (two) times a day if needed for headaches for up to 8 doses. 8 tablet 12/28/19 25 Active montelukast (SINGULAIR) 10 mg tabletIndications :Moderate persistent asthma, uncomplicated,Oth er seasonal allergic rhinitis TAKE 1 TABLET BY MOUTH EVERYDAY AT BEDTIME 90 tablet 1 01/17/20 25 Active fluticasone propionate (FLONASE) 50 mcg/actuation nasal spray Administer 2 sprays into each nostril 1 (one) time each day. 48 mL 1 01/17/20 25 Active naproxen (NAPROSYN) 500 mg tablet Take 1 tablet (500 mg total) by mouth if needed. 01/20/20 25 Active SUMAtriptan (IMITREX) 50 mg tablet Take 1 tablet (50 mg total) by mouth if needed for migraine. 9 tablet 1 01/22/20 25 Active ondansetron ODT (ZOFRAN-ODT) 4 mg disintegrating tablet Dissolve 1 tablet (4 mg total) on top of the tongue every 12 (twelve) hours if needed for nausea or vomiting for up to 20 doses. 20 tablet 01/22/20 25 Active estradioL (ESTRACE) 0.01 % (0.1 mg/gram) vaginal cream Insert 2 g into the vagina at bedtime. Daily for the first 2 weeks, then up to twice weekly as needed. 34 g 3 02/20/20 25 026 Active cetirizine (ZyrTEC) 10 mg tablet Take 1 tablet (10 mg total) by mouth 1 (one) time each day. 90 tablet 02/29/20 25 Active senna 8.6 mg tabletIndications :Constipation, unspecified constipation type Take 1 tablet (8.6 mg total) by mouth 1 (one) time each day. 90 tablet 02/29/20 25 Active fluticasone propion-salmetero L (ADVAIR HFA) 115-21 mcg/actuation inhalerIndication s:Moderate persistent asthma, uncomplicated INHALE 2 PUFFS INTO THE LUNGS TWICE A DAY 12 each 1 03/08/20 25 Active traMADoL (ULTRAM) 50 mg tablet Take 1 tablet (50 mg total) by mouth 2 (two) times a day for 28 days. Max Daily Amount: 100 mg 56 tablet 03/11/20 25 025 Active traMADoL (ULTRAM) 50 mg tablet Take 1 tablet (50 mg total) by mouth 2 (two) times a day. 56 tablet 01/22/20 25 025 Disconti nued(Reo rder) Active Problems Problem Noted Date Diagnosed Date [...] her to present to the emergency room [facility] in 10/2022. Unfortunately, due to a long [...] virus infection 04/29/2020 Overview (06/14/2023): Tested 04/22/20 [facility] Iron deficiency anemia due to chronic blood [...] pt given suggestions for diet changes IMO update Heartburn 10/10/2009 Overview (06/14/2023): cpx 10/10/09- [...] 05/15/11 seeing Kisha Torres (? Sp) in [place] - [facility] Anxiety state 07/11/2006 Overview (06/14/2023): Sees doctor at [facility], in [place] cpx 10/10/09 - going back to therapist Cpx 04/2311 - seeing therapist 05/15/11 at [facility] in [place] Encounters Date Type Department Care Team Description 03/19/2025 Results Follow-Up Obstetrics [facility]necology - [facility] [address] [place], [place] [phone] Kisha Mei CNM 03/12/2025 1:30 PM EST Procedure visit Obstetrics and Gynecology - [facility] [address] [place], [place] [phone] Kisha Mei CNM Unsatisfactory cervical Papanicolaou smear (Primary Dx) 02/20/2025 Results Follow-Up Obstetrics and Gynecology - [address] [place] [phone] Kisha Mei CNM 02/19/2025 10:00 AM EST Office Visit Obstetrics and Gynecology - [facility] [address] [place] [phone] Kisha Mei CNM Encounter for annual physical examination excluding gynecological examination in a patient older than 17 years (Primary Dx); Vaginal dryness 01/21/2025 10:45 AM EDT [facility] [address] [place] [phone] Liset Irizarry NP Injury of head, subsequent encounter (Primary Dx); Contusion of multiple sites of right shoulder, subsequent encounter; Acute nonintractable headache, unspecified headache type; Concussion without loss of consciousness, subsequent encounter from Last 3 Months Immunizations Immunization Administration Dates Next Due Hepatitis B (Hfisbnh-R-Qamnd , Recombivax HB-Adult) 19yo and older 04/13/2010,10/10/2009,08/09/2006,2006 [...] W/IMAG GUID UPPER GASTROINTESTINAL ENDOSCOPY 2012 PROCEDURE: KS UPPER GI ENDOSCOPY PERFORMED; COMMENT: normal; done to evaluate hematemesis. COLONOSCOPY 2012 PROCEDURE: HISTORICAL COLONOSCOPY; COMMENT: normal; done to evaluate hematochezia. UPPER GASTROINTESTINAL ENDOSCOPY 02/24/2010 PROCEDURE: KS UPPER GI ENDOSCOPY PERFORMED; COMMENT: Normal on PPI rx. COLONOSCOPY 05/23/2019 PROCEDURE: HISTORICAL COLONOSCOPY; COMMENT: Normal. UPPER GASTROINTESTINAL ENDOSCOPY 05/23/2019 PROCEDURE: KS UPPER GI ENDOSCOPY PERFORMED; COMMENT: Visually normal, [...] DX:Diabetes mellitus type 2, controlled, with complications ([facility]) Cardiac microvascular disease 02/21/2023 DX :Cardiac [...] Sign Reading Time Taken Comments Blood Pressure 126/86 02/19/2025 9:49 AM EST Pulse 67 02/19/2025 9:49 AM EST Temperature 36.3 C (97.3 F) 12/27/2024 5:40 PM EDT Respiratory Rate 18 12/27/2024 5:40 PM EDT Oxygen Saturation 98% 12/27/2024 5:40 PM EDT Inhaled Oxygen Concentration - - Weight 75.8 kg (167 lb) 02/19/2025 9:49 AM EST Height 165.1 cm (5' 5 ) 01/21/2025 10:57 AM EDT Body Mass Index 27.79 01/21/2025 10:57 AM EDT Plan of Treatment Upcoming Encounters Date Type Department Care Team (Late st Contact Info) Description 05/15/2025 2:15 PM EST Office Visit Pulmonology - [address] [place] [phone] Gm Spaulding MD [address] [place] [phone] Health Maintenance Due Date Last Done Comments Naloxone Order 1966 Non-Opioid Controlled Substance Agreement 1966 Opioid Substance Agreement 1966 Pain Assessment 1966 Pneumococcal Vaccine: 50+ Years (1 of 2 - PCV) 1985 RSV Immunization Adult Patients (1 - Risk 50-74 years 1-dose series) 2016 Zoster Vaccines (1 of 2) 2016 HIV Screening 03/27/2022 Social Influencers of Health Screening 03/27/2022 Depression Screening 04/18/2024 COVID-19 Vaccine ( season) 2024 07/01/2021, 06/02/2021, 08/12/2020, Additional history exists Influenza Vaccine (#1) 2024 Drug Screen 08/24/2025 08/24/2024 Hypertension/CHF/CAD Annual BMP Blood Test 12/27/2025 12/27/2024, 08/24/2024, 05/18/2024, Additional history exists Breast Cancer Screening 09/18/2026 09/19/19, 05/18/2023, 03/25/2022, Additional history exists Cholesterol Screening (Lipid Panel) 12/30/2027 12/29/2022 Colorectal Cancer Screening: Colonoscopy 11/23/2029 11/23/2024, 05/23/2019 Cervical Cancer Screening: HPV 03/12/2030 03/12/2025, 02/19/2025, 11/02/2021 DTaP,Tdap,and Td Vaccines (4 - Td or [...] Procedure Name Priority Date/Time Associated Diagnosis Comments PAP SMEAR Routine 03/12/2025 2:33 PM EST Unsatisfactory cervical Papanicolaou smear HPV WITH REFLEX GENOTYPE Routine 03/12/2025 2:33 PM EST Unsatisfactory cervical Papanicolaou smear CHLAMYDIA TRACHOMATIS AND NEISSERIA GONORRHOEAE BY TMA, THINPREP Routine 02/19/2025 10:24 AM EST Encounter for annual physical examination excluding gynecological examination in a patient older than 17 years PAP SMEAR Routine 02/19/2025 10:24 AM EST Encounter for annual physical examination excluding gynecological examination in a patient older than 17 years HPV WITH REFLEX GENOTYPE Routine 02/19/2025 10:24 AM EST Encounter for annual physical examination excluding gynecological examination in a patient older than 17 years BASIC METABOLIC PANEL STAT 12/27/2024 7:31 PM EDT COLONOSCOPY Routine 11/23/2024 4:22 PM EDT Family hx of colon cancer Family hx colonic polyps MG MAMMO DIGITAL SCREENING W ARNOLD BILAT Routine 09/18/2024 8:43 AM EDT Encounter for screening mammogram for breast cancer DRUG ABUSE SCREEN 8A PANEL, URINE Routine 08/24/2024 2:04 PM EDT Encounter for long-term (current) use of medications LIPID PANEL Routine 12/29/2022 HM HEPATITIS C SCREENING Routine 08/17/2016 from Last 3 Months or Most Recently Relevant to Health Maintenance Results * HPV with reflex genotype (03/12/2025 2:33 PM EST) Only the most recent of2 resultswithin the time period is included. HPV Negative Negative LAB MICROBIOLOGY METHOD 03/15/2025 4:08 PM EST [facility] Brushing/Spatula Cervix uteri structure / Unknown 03/12/2025 2:33 PM EST 03/15/2025 10:13 AM EST Kisha eMi CNM LAB MOLECULAR DIAGNOSTICS OR DERABLES Final Result [facility] [address] [place] [address], * Pap smear (03/12/2025 2:33 PM EST) Only the most recent of2 resultswithin the time period is included. Interpretation Negative for intraepithelial lesion or malignancy 03/18/2025 3:46 PM EST [facility] at 1546 EST General Categorization Negative 03/18/2025 3:46 PM [facility] Specimen Adequacy Satisfactory for evaluation, endocervical/soto sformation zone component absent 03/18/2025 3:46 PM [facility] Pap Methodology Liquid Based Pap Test 03/18/2025 3:46 PM [facility] Disclaimer The Pap test is a screening test which carries an inherent false negative rate. These test results should be correlated with the patient's clinical findings and history. This Pap test was processed using an automated screening system. Technical cytopathology services provided by [facility], at [address] [place] [phone] (CLIA # [id number]/Lanie Gagnon MD, Handicrafts Teacher.) 03/18/2025 3:46 PM [facility] Console Pap Interpretation Reported 03/18/2025 3:46 PM [facility] Brushing/Spatula Cervix uteri structure / Unknown 03/12/2025 2:33 PM EST 03/12/2025 2:33 PM EST us Kisha Mei CNM LAB CYTOLOGY ORDERABLES Aleah l Result [facility] [address] [place] [address], [place] [phone] * Chlamydia trachomatis and neisseria gonorrhoeae by tma, thinprep (02/19/2025 10:24 AM EST) Pathologist [facility] N. gonorrhoeae, RNA Probe Negative Negative LAB MICROBIOLOGY METHOD 02/20/2025 1:01 PM EST [facility] Chlamydia, RNA Probe Negative Negative LAB MICROBIOLOGY METHOD 02/20/2025 1:01 PM EST [facility] Brushing/Spatula Cervix uteri structure / Unknown 02/19/2025 10:24 AM EST 02/20/2025 6:21 AM EST [facility] LAB CYTOLOGY ORDERABLES Aleah l Result Performing Organization Address [facility]/ZIP Co de Phone Number [facility] [address] [place] [address], [place] [phone] * (ABNORMAL) Basic Metabolic Panel (BMP) (12/27/2024 7:31 PM EDT) Pathologist [facility] Sodium 136 133 - 145 mmol/L LAB CHEMISTRY METHOD [facility]24 [facility] Potassium 4.6 3.5 - 5.5 mmol/L LAB CHEMISTRY METHOD 12/27/2024 8:03 PM EDT [facility] Chloride 106 96 - 110 mmol/L LAB CHEMISTRY METHOD 12/27/2024 8:[facility] CO2 28 21 - 32 mmol/L LAB CHEMISTRY METHOD 12/27/2024 8:03 PM [facility] Anion Gap 2(L) 3 - 11 LAB CHEMISTRY METHOD 12/27/2024 8:03 PM [facility] Glucose 82 70 - 100 mg/dL LAB CHEMISTRY METHOD 12/27/2024 8:03 PM EDT [facility] BUN 18 5 - 25 mg/dL LAB CHEMISTRY METHOD 12/27/2024 8:03 PM EDT [facility] Creatinine 0.75 0.50 - 1.10 mg/dL LAB CHEMISTRY METHOD 12/27/2024 8:03 PM EDT [facility] eGFR 92 >=60 mL/min/1. 73m2 LAB CHEMISTRY METHOD 12/27/2024 8:03 PM EDT [facility] Comment:Calculation based on the Chronic Kidney Disease Epidemiology Collaboration (CKD-EPI) equation refit without adjustment for race. BUN/Creatinine Ratio 24.0 LAB CHEMISTRY METHOD 12/27/2024 8:03 PM EDT [facility] Calcium 10.4 8.5 - 10.5 mg/dL LAB CHEMISTRY METHOD 12/27/2024 8:03 PM EDT [facility] Blood Venous blood specimen / Unknown Venipuncture / Unknown 12/27/2024 7:31 PM EDT 12/27/2024 7:37 PM EDT us Lázaro Jaffe MD LAB BLOOD ORDERABLES Final Res ult [facility] [address] [place] [address], * COLONOSCOPY Anesthesia - [facility]; [facility] ENDOSCOPY (11/23/2024 4:22 PM EDT) Anatomical Region Laterality Modality Endoscopy 11/23/2024 4:14 PM EDT Impressions 11/23/2024 4:23 PM EDT - Preparation of the colon was poor. - Stool in the entire examined colon. - No specimens collected. Recommendation: - Discharge patient to home. - Repeat colonoscopy at the next available appointment because the bowel preparation was suboptimal. Narrative 11/23/2024 4:23 PM EDT [facility] GI Patient Name: Stu Brown Procedure Date: [...] verified by the physician, the nurse, the double spindle shaper operator and the swimming pool service technician in the pre-procedure area in the [...] neoplasm of digestive organs CPT copyright 2020 [employer]. All rights reserved. The codes documented in this report are preliminary and upon social service liaison review may be revised to meet current compliance requirements. Ryan Patricia MD 11/23/2024 4:23:06 PM This report has been signed electronically.Ryan Patricia MD Number of Addenda: 0 Note Initiated On: 11/23/2024 4:14 PM Scope In: 4:18:39 PM Scope Out: 4:21:20 PM Endoscopy Department at [facility] - [address] [place] [phone] Procedure Note Ryan Patricia MD - 11/23/2024 [facility] GI Patient Name: Stu Brown Procedure Date: [...] the physician, the nurse, theanesthetist and the swimming pool service technician in the pre-procedure area in the [...] neoplasm of digestive organs CPT copyright 2020 [employer]. All rights reserved. The codes documented in this report are preliminary and upon social service liaison reviewmay be revised to meet current compliance requirements. Ryan Patricia MD 11/23/2024 4:23:06 PM This report has been signed electronically.Ryan Patricia MD Number of Addenda: 0 Note Initiated On: 11/23/2024 4:14 PM Scope In: 4:18:39 PM Scope Out: 4:21:20 PM Endoscopy Department at [facility] - [address] [place] [phone] IMPRESSION: - Preparation of the colon was poor. - Stool in the entire examined colon. - No specimens collected. Recommendation: - Discharge patient to home. - Repeat colonoscopy at the next availableappointment because the bowel preparation was suboptimal. us Ryan Patricia MD GI~PROCEDURE ORDERABLES Fin al Result * MG Mammo Digital Screening w Arnold bilat (09/18/2024 8:43 AM EDT) Anatomical Region Laterality Modality Breast Bilateral Mammography 09/18/2024 4:49 PM EDT Impressions 09/18/2024 4:52 PM EDT No mammographic evidence of malignancy. BREAST DENSITY: B - There are scattered areas of fibroglandular density. BI-RADS CATEGORY: 1 - NEGATIVE RECOMMENDATION: Screening bilateral mammogram is recommended in 1 year. MAMMO LOCATION: [facility], [address] [place] [address], [phone], . -------- FINAL REPORT -------- Dictated By: Terra Cruz Dictated Date: 09/18/2024 16:49 ET Assigned Physician: Terra Cruz Reviewed and Electronically Signed By: Terra Cruz Signed Date: 09/18/2024 16:52 ET Workstation ID: [id number] Transcribed By: Self Edit Transcribed Date: 09/18/2024 [...] is recommended in 1 year. MAMMO LOCATION: [facility], [address] [place] [address], [phone], . -------- FINAL REPORT -------- Dictated By: Terra Cruz Dictated Date: 09/18/2024 16:49 ET Assigned Physician: Terra Cruz Reviewed and Electronically Signed By: Terra Cruz Signed Date: 09/18/2024 16:52 ET Workstation ID: [id number] Transcribed By: Self Edit Transcribed Date: 09/18/2024 16:49 ET Nadeem Mendosa MD IM BI PROCEDURES Final Result * Drug abuse screen 8a panel, urine (08/24/2024 2:04 PM EDT) Amphetamine Screen, Ur Negative Negative LAB CHEMISTRY METHOD 08/24/2024 4:29 PM EDT [facility] Comment:Certain OTC medicati ons containing ephedrine, phenylephrine, pseudoephedrine and phenylpropanolamine can cause false positive results. Barbiturate Screen, Ur Negative Negative LAB CHEMISTRY METHOD 08/24/2024 4:29 PM EDT [facility] Benzodiazepine Screen, Ur Negative Negative LAB CHEMISTRY METHOD 08/24/2024 4:29 PM EDT [facility] Cocaine Screen, Ur Negative Negative LAB CHEMISTRY METHOD 08/24/2024 4:29 PM EDT [facility] Opiate Screen, Ur Negative Negative LAB CHEMISTRY METHOD 08/24/2024 4:29 PM EDT [facility] Cannabinoid (THC) Screen, Ur Negative Negative LAB CHEMISTRY METHOD 08/24/2024 4:29 PM EDT [facility] Comment:Specimens from patie nts taking pantoprazole sodium (Protonix) have been shown to produce false positive results. Oxycodone Screen, Ur Negative Negative LAB CHEMISTRY METHOD 08/24/2024 4:29 PM EDT [facility] Fentanyl, Ur Negative Negative LAB CHEMISTRY METHOD 08/24/2024 4:29 PM EDT [facility] Urine Urine specimen obtained by clean catch procedure / Unknown Non-blood Collection / Unknown 08/24/2024 2:04 PM EDT 08/24/2024 2:04 PM EDT Narrative [facility] - 08/24/2024 4:29 PM EDT Assay cutoffs: Amphetamines 1000 ng/mL Barbiturates 200 ng/mL Benzodiazepines 200 ng/mL Cocaine 300 ng/mL Fentanyl 1 ng/mL Opiates 300 ng/mL Oxycodone 100 ng/mL THC 50 ng/mL Semi-quantitative assay for screening purposes only. Unconfirmed screening result should not be used for non-medical purposes. *ALTERNATE METHOD CONFIRMATION DONE UPON REQUEST ONLY* Óscar Morse NP LAB URINE ORDERABLES Final Res ult [facility] [address] [place] [address], * Lipid panel (12/29/2022) LDL/HDL Ratio 3 0 - 4 Triglycerides 142 0 - 150 mg/dL Cholesterol 185 0 - 200 mg/dL HDL 61 >=40 mg/dL LDL Cholesterol 96 0 - 100 mg/dL Blood Venous blood specimen / Unknown Historical Provider LAB BLOOD ORDERABLES Aleah l Result * Hm Hepatitis C Screening (08/17/2016) Hepatitis C Screening abstracted Historical Provider MD HEALTH MAINTENANCE Final Result from Last 3 Months or Most Recently Relevant to Health Maintenance Insurance [facility] [id number] [place]ID - [place] [facility] [place] - [place] Advance Directives Documents on File Type Date Recorded Patient Hvac Service Tech Expl anation Health Care Decision (hx) 03/29/2019 [...] (hx) 03/29/2019 AD LOPEZ DIRECTIVE Care Teams Door Serviceman Relationship Specialty Start Date End Date Nadeem Mendosa MD [address] [place] [address] PCP - General Internal Medicine 12/31/14
--- OUTSIDE RECORDS SUMMARY | 2025-04-08 07:48 | XMS_ITS | Continuity of Care Document ---
Author Organization [place] - [facility], [facility] Address [address] [place] [address] Assessment No assessment recorded. Plan of Treatment Reminders Order Date Submit Date Provider Last Modified By Organization Details Last Modified Time Details Appointments Allergy new injection 2025 10:00A M [facility] Not available Not available Not available Establish ed- Allergy f-up 6mon 2025 10:00A M JENN LAINEZ MD Not available Not available Not available Lab None recorded. Referral None recorded. Procedures allergen immunothe rapy; multiple injection s (PROC) 2024 025 [email or web address] Not available 03/29/2025 10:19:26 Surgeries None recorded. Imaging None recorded. Medication Orders epinephri ne 0.3 mg/0.3 mL injection , auto-inje ctor 2024 025 [facility]/Pharmacy #[id number], [address] [facility], [place], [address], 03/18/2025 09:37:23 Patient TargetsNo targets recorded. Patient InstructionsNo instructions recorded. Reason for Referral None Reported. Problems Name Problem SNOMED Code Status Onset Date Resolution Date Notes Provider Name and Address Organization Details Recorded Time Atypical facial pain 82966539 Active 2024 JENN LAINEZ MD [address] [place] [address], [address] [place] - [facility] 09:25:15 Allergic rhinitis caused by pollen 39862995 Active 2024 JENN LAINEZ MD [address] [place] [address] [place], [address], [facility] [place] 12:07:19 Migraine 27828795 Active 2024 JENN LAINEZ MD [address] [facility] [address] [facility], [facility] [place], [address], [facility] - [facility] [place] 12:07:33 Allergic rhinitis 85026221 Active 2024 JENN LAINEZ MD [address] [facility] [address] [facility], [facility] [place], [address], [facility] - [facility] [place] 12:11:31 Non-allergi c rhinitis 745369834717 Active 2024 JENN LAINEZ MD [address] [facility] [address] [facility], [facility] [place], [address], [facility] - [facility] [place] 5 12:11:31 Seasonal allergic rhinitis 145101530 Active 2024 JENN LAINEZ MD [address] [address], [facility] [place], [address], [facility] - [facility] [place] 5 12:11:31 Perennial allergic rhinitis 135495453 Active [address] [facility], [address], [facility] [place], [address], [facility] - [facility] 5 09:20:47 Deviated nasal septum 119709892 Active 2024 JENN LAINEZ MD [address] [facility] [address] [facility], [facility] [place], [address], [facility] - [facility] 5 09:35:18 Problem Notes None recorded. Procedures Surgical History Date Name Laterality Status Provider Name and Address Organization Details Recorded Time Allergy Testing-Full completed KELLY QUEEN 100 [facility],[place] [place] [address], [place], [address], [facility] - [facility] [place] 02/27/2025 09:42:18 5 Allergy Testing-Full completed STEPAN LEIVA, A 100 [facility] [address], [place], [address], [place] - [facility] 02/05/2025 09:59:28 Imaging Results None recorded. Procedure Notes None recorded. Medical Equipment None Reported. Allergies Allergen ID Allergen Name Allergen Category Reaction Reaction Severity Criticality Documentation Date Start Date Code Code System Note Provider Name and Address Organization Details Recorded Time 715940 Diflucan medicatio n Not available Not available Not available 01/04/2025 3 RxNorm Melissa Hector murillo [place] - [facility] 5 08:37:17 709356 fluconazo le medicatio n Not available Not available Not available 03/18/20252007 4450 RxNorm Red face, rash Not Available [employer] - prod 5 04:45:59 265854 Substance with sulfonami de structure and antibacte rial mechanism of action (substanc e) medicatio n rash Not available Not available 03/18/20252014 42539 8003 SNOMED Other react ion(s ): Rash/ [place] titis Not Available [employer] External Data Service - prod 5 04:45:59 Medications Name Sig Start Date Stop Date Status Note LastModified by Organization Details LastModified Time cyclobenzap rine 10 mg tablet TAKE 1 TABLET BY MOUTH THREE TIMES A DAY FOR 10 DAYS 03/18 completed Not Available Not Available Not Available doxycycline hyclate 100 mg capsule TAKE 1 CAPSULE ORALLY 2 TIMES A DAY FOR 10DAYS WITH AT LEAST 8OZ OF WATER DON'T LIE DOWN FOR 30 MIN 01/04 completed Not Available Not Available Not Available cetirizine 10 mg tablet TAKE 1 TABLET BY MOUTH 1 TIME EACH DAY. active Not Available Not Available No t Available azithromyci n 250 mg tablet TAKE 2 TABLETS BY MOUTH TODAY, THEN TAKE 1 TABLET DAILY FOR 4 DAYS DIRECTED 01/04 completed Not Available Not Available Not Available prazosin 1 mg capsule TAKE 1 CAPSULE BY MOUTH EVERY NIGHT AT BEDTIME. active Not Available Not Available No t Available senna 8.6 mg tablet TAKE 1 TABLET BY MOUTH EVERY DAY active Not Available Not Available No t Available prednisone 20 mg tablet TAKE 3 TABS IN THE AM ON DAY 1, 2 TABLETS DAY 2, 1 TABLET DAY 3, AND 1/2 TABLET ON DAY 4 AND DAY 5 03/18 completed Not Available Not Available Not Available rizatriptan 10 mg tablet TAKE 1 TABLET BY MOUTH EVERY DAY NEEDED FOR 30 DAYS 01/04 completed Not Available Not Available Not Available clonazepam 1 mg tablet TAKE 1 TABLET BY MOUTH TWICE A DAY AND 1/2 TABLET NEEDED FOR PANIC DIRECTED active Not Available Not Available No t Available sumatriptan 50 mg tablet TAKE 1 TABLET (50 MG TOTAL) BY MOUTH IF NEEDED FOR MIGRAINE. active Not Available Not Available No t Available amlodipine 2.5 mg tablet TAKE 1 TABLET BY MOUTH EVERY DAY 01/04 completed Not Available Not Available Not Available fexofenadin e 180 mg tablet TAKE 1 TABLET (180 MG TOTAL) BY MOUTH DAILY FOR 90 DAYS active Not Available Not Available No t Available tramadol 50 mg tablet TAKE 1 TABLET (50 MG TOTAL) BY MOUTH TWICE DAILY FOR 28 DAYS. MAX DAILY AMOUNT: 100 MG active Not Available Not Available No t Available butalbital- acetaminoph en-caffeine 50 mg-325 mg-40 [...] 2 TIMES DAILY NEEDED FOR HEARTBURN . active Not Available Not Available No t Available trazodone 100 mg tablet TAKE 1 TABLET BY MOUTH EVERY NIGHT TAKE WITH 150 MG TABLET FOR TDD OF 250 MG active Not Available Not Available No t [...] Not Available Not Available Not Available trazodone 150 mg tablet TAKE 1 TABLET BY MOUTH EVERY DAY AT NIGHT active Not Available Not Available No t Available oseltamivir 75 mg capsule TAKE 1 CAPSULE BY MOUTH TWICE A DAY FOR 5 DAYS 01/04 completed Not Available Not Available Not Available naproxen 500 mg tablet,paolo yed release TAKE 1 TABLET BY MOUTH TWICE A DAY FOR 30 DAYS active Not Available Not Available No t Available docusate sodium 100 mg capsule TAKE 1 CAPSULE BY MOUTH TWICE A DAY FOR 10 DAYS 01/04 completed Not Available Not Available Not Available oxybutynin chloride ER 5 mg tablet,exte nded release 24 hr TAKE 1 TABLET BY MOUTH EVERY DAY DO NOT CRUSH, CHEW, OR SPLIT active Not Available Not Available No t Available gabapentin 300 mg capsule TAKE 1 CAPSULE BY MOUTH TWICE A DAY FOR 14 DAYS MAY INCREASE SEDATION, DO NOT DRIVE AFTER TAKING active Not Available Not Available No t Available montelukast 10 mg tablet TAKE 1 [...] Available gabapentin 100 mg capsule TAKE 2 CAPSULES BY MOUTH EVERY NIGHT AT BEDTIME active Not Available Not Available No t Available azelastine 137 mcg (0.1 %) nasal spray USE 2 SPRAYS BY EACH NARE ROUTE 2 TIMES DAILY. USE IN EACH NOSTRIL DIRECTED active Not Available Not Available No t Available epinephrine 0.3 mg/0.3 mL injection, auto-inject or Take 1 auto by injection route for 180 days, for anaphylax is. 2024 active Not Available Not Available Not Avai lable estradiol 0.01% (0.1 mg/gram) vaginal cream INSERT 2GM INTO THE VAGINA AT BEDTIME. DAILY FOR THE FIRST 2 WKS, THEN UP TO TWICE WEEKLY NEEDED active Not Available Not Available No t [...] HOURS IF NEEDED FOR NAUSEA OR VOMITING 03/18 completed Not Available Not Available Not Available [...] TABLET BY MOUTH TWICE A DAY FOR 7 DAYS 03/18 completed Not Available Not Available Not Available [...] mg capsule,del ayed release TAKE 1 CAPSULE (30 MG) BY MOUTH DAILY FOR 90 DAYS active Not Available Not Available No t Available duloxetine 60 mg capsule,del ayed release TAKE 1 CAPSULE BY MOUTH TWICE A DAY active Not Available Not Available No t Available PreviDent 5000 Sensitive 1.1 %-5 % dental paste USE TO BRUSH TEETH TWCE DAILY. DO NOT RINSE. NO FOOD OR DRINK FOR 30 MINUTES AFTER USE 01/04 completed Not Available Not Available Not Available fluticasone propionate 115 mcg-salmete rol 21 mcg/actuati on HFA inhaler INHALE 2 PUFFS INTO THE LUNGS TWICE A DAY active Not Available Not Available No t Available diclofenac 1 % topical gel APPLY 4 GRAMS TOPICALLY TWICE DAILY active Not Available Not Available No t Available GaviLyte-G 236 gram-22.74 gram-6.74 gram-5.86 gram oral solution PLEASE SEE ATTACHED FOR DETAILED DIRECTION S 01/04 completed Not Available Not Available Not Available Emgality Pen 120 mg/mL subcutaneou s pen injector INJECT 240 MG (2 ML) SUBCUTANE OUSLY ONCE LOADING DOSE active Not Available Not Available No t Available Aimovig Autoinjecto r 140 mg/mL subcutaneou s auto-inject or INJECT 1 PEN SUBCUTANE OUSLY ONCE A MONTH 01/04 completed Not Available Not Available Not Available Vitals Date Recorded Body height Body mass index (BMI) Body weight Provider Name and Address Organization Details Last Updated DateTime 03/18/2025 162.56 cm 28.3 kg/m2 75702.74 g Melissa Young [place] - [facility] 03/18/2025 09:23:55 Social History None recorded. Functional Status None recorded. Mental Status None recorded. Family History Nothing Reported. Medical History Condition Response Migraines Y Anxiety Y Gynecological HistoryNo gynecological history recorded. Obstetrics History GPAL:G 0 P 0 0 0 0 Past Encounters Encounter ID Performer Location Encounter Start Date Encounter Closed Date Diagnosis/Indication Diagnosis SNOMED-CT Code Diagnosis ICD10 Code Diagnosis IMO Codes Diagnosis Note [id number] KELLY QUEEN [facility] [address] [place] [address] 02/27/2025 08:46:37 02/27/2025 12:16:55 Perennial allergic rhinitis 908741279 J30.89 [id number] JENN LAINEZ MD [facility]NT[facility] [address] [address] 03/18/2025 08:53:37 03/18/2025 09:39:29 Allergic rhinitis caused by pollen 42590722 J30.1 83764560 We reviewed allergy testing. We reviewed a 3 pronged approach to allergy treatment including avoidance, symptomati c relief, typically with nasal steroids and oral antihistam gigi, and immunother apy. I counseled the patient that immunother apy is used for the most severe allergies which have failed medical management and avoidance. I discussed the risks and benefits of SCIT and SLIT. I discussed the risks of local reactions ranging to the level of anaphylaxi s. I discussed that therapy can last 3-5 years and it often takes several months to notice an effect. Perennial allergic rhinitis 962472596 J30.89 247192 Deviated nasal septum 12 4692905 J34.2 873603 She is concerned about swelling on the right, probably appreciate s septum and nasal valve. CT in January was unremarkab le. Allergic rhinitis 318642 04 J30.89 Health Concerns Section Related Observation LastModified by Organization Detai ls LastModified Time None Recorded Concern Status LastModified by Organization Details LastModified Time None Recorded Payers Encounter Date Sequence Insurance Name Policy Number Policy Brown Covered Member ID Brown Member ID Guarantor Name 03/18/2025 1 [facility] [id number] Ghazal Her [id number] Ghazal Her 03/18/2025 2 [place] [facility] Ghazal Her [id number] Ghazal Her Notes Date Note Type Note Provider Name and Address Organization Details Recorded Time 03/18/2025 text/html Headaches are better with the aimovig Most of the trees were pretty severe; weeds and the grasses were positive the dust mites were severe and then several of the molds were positive as well the cat was severe and the dog was mild. JENN LAINEZ MD [address] [place] [address], [address], [facility] - [facility] 03/21/2025 11:42:52 OBGyn Episode No OBEpisode recorded.
--- OUTSIDE RECORDS SUMMARY | 2025-04-08 07:48 | XMS_ITS | Encounter Summary ---
Author Organization [facility] Address [address] [place] [address] Care Team Providers Care Advice Nurse Name Role Phone Nadeem Mendosa MD Primary Care Provider [phone] Reason for Visit * Reason Onset Date Comments Referral 01/02/2025 EXTERNAL Encounter Details Date Type Department Care Team (Late st Contact Info) Description 01/02/2025 Telephone Internal Medicine - [address] [address] Nadeem Mendosa MD [address] [place] [address] Social History Tobacco Use Types Packs/Day Years [...] insurance must be obtained and registered in [facility] or their referral can not be processed. Who is calling to request this referral? PT If the caller is not the patient, what is their name? not applicable Ask the patient WHO referred them to this specialty: Patient was seen in the [facility] by 12/27/24 Lázaro Jaffe and was [...] visit: Initial Visit Address of Specialist: [address] [facility] [address], [place] [address] Phone # of Specialist: [phone] Fax #: (if applicable): n/a Does patient have an appointment scheduled?: no Date of appointment- (including a retro-request): n/a Is this appointment related to: Worker Comp documented in this encounter Plan of Treatment Upcoming Encounters Date Type Department Care Team (Late st Contact Info) Description 05/15/2025 2:15 PM EST Office Visit Pulmonology - [place] [address] [facility] [address] [place] [address] Gm Spaulding MD [address] [place] [phone] documented as of this encounter Visit Diagnoses Diagnosis Concussion with unknown loss of consciousness status, initial encounter- Primary documented in this encounter Care Teams Advice Nurse Relationship Specialty Start Date End Date Nadeem Mendosa MD [address] [place] [address] PCP - General Internal Medicine 12/31/14 documented as of this encounter
--- OUTSIDE RECORDS SUMMARY | 2025-04-08 07:48 | XMS_ITS | Data Portability ---
Author Organization [place] - [facility], Allergy Address [address] [address] Assessment Encounter Date Assessment Date Assessment LastModified [...] Allergy new injection 2025 10:00A M [facility] Not available Not available Not available Establish ed- Allergy f-up 6mon 2025 10:00A M JENN LAINEZ MD Not available Not available Not available Lab None recorded. Referral None recorded. Procedures allergen immunothe rapy; multiple injection s (PROC) 2024 025 [email or web address] Not available 03/29/2025 10:19:26 allergy testing, skin prick (PROC) 2024 025 [email or web address] Not available 02/05/2025 09:32:11 intraderm al allergy skin testing (PROC) 2024 025 [email or web address] Not available 02/05/2025 09:32:17 pulmonary function test procedure (PROC) 2024 025 [email or web address] Not available 02/05/2025 09:32:23 pulse oximetry (PROC) 2024 025 [email or web address] Not available 02/05/2025 09:32:29 Surgeries None recorded. Imaging CT, sinuses, w/o contrast 2024 025 [facility], [address] [place] [address], [address], 01/17/2025 11:58:20 Medication Orders epinephri ne 0.3 mg/0.3 mL injection , auto-inje ctor 2024 025 [id number] [address] [place] [address], [address], 03/18/2025 09:37:23 azelastin e 137 mcg (0.1 %) nasal spray 2024 025 [id number] [address] [place] [address], [address], 01/04/2025 12:11:59 Patient TargetsNo targets recorded. Patient InstructionsNo instructions recorded. Reason for Referral None Reported. Results Created Date Observation Date Name Description Value Unit Range Abnormal Flag Note LastModifiedBy Organization Detail LastModifiedTime 01/05/[address], sinus es, w/o contr ast No observ ation record ed. [email or web address] [facility] [address], [address], 01/04/2025 12:06:38 01/24/20 25 01/04/2025 CT, sinus es, w/o contr ast No observ ation record ed. [email or web address] [facility] [address] [facility] [address], [place], [address], 01/29/2025 17:05:36 02/06/20 25 becky metry testi ng* No observ ation record ed. [email or web address] Not Available 2024 09:25:24 Result Notes None recorded. Problems Name Problem SNOMED Code Status Onset Date Resolution Date Notes Provider Name and Address Organization Details Recorded Time Atypical facial pain 82021677 Active 2024 JENN LAINEZ MD [address] [address], [place], [address], [facility] - [facility] [place] 09:25:15 Allergic rhinitis caused by pollen 12960238 Active 2024 JENN LAINEZ MD [address] [address], [place], [address], [facility] - [facility] [place] 12:07:19 Migraine 09977222 Active 2024 JENN LAINEZ MD [address] [address], [place], [address], [facility] - [facility] [place] 12:07:33 Allergic rhinitis 70372022 Active 2024 JENN LAINEZ MD [address] [address], [place], [address], [facility] - [facility] [place] 12:11:31 Non-allergi c rhinitis 223137568819 Active 2024 JENN LAINEZ MD [address] [address], [place], [address], [facility] - [facility] [place] 12:11:31 Seasonal allergic rhinitis 798368141 Active 2024 JENN LAINEZ MD 100 [facility], [address], [place], [address], [facility] - [facility] 5 12:11:31 Perennial allergic rhinitis 376531867 Active [address] [facility] [address], [place], [address], [facility] 5 09:20:47 Deviated nasal septum 156536130 Active 2024 JENN LAINEZ MD 100 [facility], [address], [place], [address], [facility] - [facility] 5 09:35:18 Problem Notes None recorded. Procedures Surgical History Date Name Laterality Status Provider Name and Address Organization Details Recorded Time Allergy Testing-Full completed KELLY QUEEN 100 [facility],[address], [address], [facility] 02/27/2025 09:42:18 5 Allergy Testing-Full completed KELLY QUEEN 100 [facility],[address], [address], [facility] 02/05/2025 09:59:28 Imaging Results None recorded. Procedure Notes None recorded. Medical Equipment None Reported. Allergies Allergen ID Allergen Name Allergen Category Reaction Reaction Severity Criticality Documentation Date Start Date Code Code System Note Provider Name and Address Organization Details Recorded Time 807449 Diflucan medicatio n Not available Not available Not available 01/04/2025 3 RxNorm Melissa murillo [place] - [facility] 5 08:37:17 932277 fluconazo le medicatio n Not available Not available Not available 03/18/20252007 4450 RxNorm Red face, rash Not Available [employer] - External [employer] - prod 04:45:59 265288 Substance with sulfonami de structure and antibacte rial mechanism of action (substanc e) medicatio n rash Not available Not available 03/18/20252014 52940 8003 SNOMED Other react ion(s ): Rash/ [place] titis Not Available [employer] - External [employer] Service - prod 5 04:45:59 [...] Updated DateTime 01/04/2025 165.1 cm 27.3 kg/m2 27950.15 g Melissa Young [place] - [facility] 01/04/2025 08:36:48 Date Recorded Body height Oxygen saturation Heart rate Body mass index (BMI) Body weight Systolic And Diastolic Provider Name and Address Organization Details Last Updated DateTime 165.1 cm 97 % 63 /min 27.3 kg/m2 32138.1 5 g 105/73 mm[Hg] GABRIELLA QUEEN 100 [facility] 100[place], [place], [address], [place] - [facility] 09:19:58 Date Recorded Oxygen saturation Heart rate Systolic And Diastolic Provider Name and Address Organization Details Last Updated DateTime 02/27/2025 97 % 70 /min 112/79 mm[Hg] STEPAN LEIVA [address], [address], [place] - [facility] 02/27/2025 09:04:07 Date Recorded Body height Body mass index (BMI) Body weight Provider Name and Address Organization Details Last Updated DateTime 03/18/2025 162.56 cm 28.3 kg/m2 47813.74 g Melissa Young [place] - [facility] 03/18/2025 09:23:55 Social History None [...] ICD10 Code Diagnosis IMO Codes Diagnosis Note [id number] JENN LAINEZ MD [facility] [address] [address] 01/04/2025 08:27:05 01/04/2025 10:08:59 Atypical facial pain 93040085 G50.1 884871 Allergic r hinitis caused by pollen 13259967 J30.1 21206387 Migraine 77277084 G43.90 9 60258319 [id number] KELLY QUEEN [facility] [address] [place] [address] 02/05/2025 08:48:35 02/05/2025 09:59:46 Perennial allergic rhinitis 841154234 J30.89 353121 [id number] KELLY QUEEN [facility] [address] [address] 02/27/2025 08:46:37 02/27/2025 12:16:55 Perennial allergic rhinitis 772580859 J30.89 958894 [id number] JENN LAINEZ MD [facility] [address] [address] 03/18/2025 08:53:37 03/18/2025 09:39:29 Allergic rhinitis caused by pollen 93217516 J30.1 45461513 We reviewed allergy testing. We reviewed a [...] to notice an effect. Perennial allergic rhinitis 113968478 J30.89 642284 Deviated nasal septum 12 4534007 J34.2 749867 She is concerned about swelling on the right, probably appreciate s septum and nasal valve. CT in January was unremarkab le. Allergic rhinitis 397101 04 J30.89 Health Concerns Section Related Observation LastModified by Organization Detai ls LastModified Time None Recorded Concern Status LastModified by Organization Details LastModified Time None Recorded Advance Directives Directive None Recorded Payers Insurance Date Sequence Insurance Name Policy Number Policy Brown Covered Member ID Brown Member ID Guarantor Name 03/18/2025 1 Stampsy MILNER [id number] Ghazal Her [id number] Ghazal Her 03/19/2025 2 [place]: [facility] Ghazal Her [id number] Ghazal Her Notes Date Note Type Note [...] and cats. No immunotherapy JENN LAINEZ MD [address] [place] [address], [address], [facility] - [facility] 01/04/2025 12:14:13 5 text/html Headaches are better with the aimovig Most of the trees were pretty severe; weeds and the grasses were positive the dust mites were severe and then several of the molds were positive as well the cat was severe and the dog was mild. JENN LAINEZ MD [address] [place] [address],[address], [address], [facility] - [facility] 03/21/2025 11:42:52 OBGyn Episode No OBEpisode recorded.
--- OUTSIDE RECORDS SUMMARY | 2025-04-08 07:48 | XMS_ITS | Continuity of Care Document ---
Author Organization [place] - [facility], Allergy Address [address] [address] Assessment No assessment recorded. Plan of Treatment Reminders Order Date Submit Date Provider Last Modified By Organization Details Last Modified Time Details Appointments Allergy new injection 2025 10:00A M E[facility] of E Not available Not available Not available Establish ed- Allergy f-up 6mon 2025 10:00A M JENN LAINEZ MD Not available Not available Not available Lab None recorded. Referral None recorded. Procedures None recorded. Surgeries None recorded. Imaging None recorded. Medication Orders None recorded. Patient TargetsNo targets recorded. Patient InstructionsNo instructions recorded. Reason for Referral None Reported. Results Created Date Observation Date Name Description Value Unit Range Abnormal Flag Note LastModifiedBy Organization Detail LastModifiedTime 01/24/20 25 01/04/2025 CT, sinus es, w/o contr ast No observ ation record ed. [email or web address] [address], [address], 01/29/2025 17:05:36 02/06/20 25 becky metry testi ng* No observ ation record ed. [email or web address] Not Available 2024 09:25:24 Result Notes None recorded. Problems Name Problem SNOMED Code Status Onset Date Resolution Date Notes Provider Name and Address Organization Details Recorded Time Atypical facial pain 58481735 Active 2024 JENN LAINEZ MD 100 [facility],[address], [address], [place] - [facility] 09:25:15 Allergic rhinitis caused by pollen 99581126 Active 2024 JENN LAINEZ MD 100 [facility], E [facility], [place], [address], [facility] - [facility] 5 12:07:19 Migraine 73034151 Active 2024 JENN LAINEZ MD 100 [facility],ST E [facility], [place], [address], [facility] - [facility] 5 12:07:33 Allergic rhinitis 15852199 Active 2024 JENN LAINEZ MD 100 [facility], E [facility], [place], [address], [facility] - [facility] 5 12:11:31 Non-allergi c rhinitis 956272439056 Active 2024 JENN LAINEZ MD [address] [address], [place], [address], [facility] 12:11:31 Seasonal allergic rhinitis 556405432 Active 2024 JENN LAINEZ MD [address] [address], [place], [address], [facility] 12:11:31 Perennial allergic rhinitis 145542242 Active 2024 KELLY QUEEN 100 [facility], E [facility], [place], [address], [facility] - [facility] 5 09:20:47 Deviated nasal septum 681805280 Active 2024 JENN LAINEZ MD 100 [facility], E [facility], [place], [address], [facility] 5 09:35:18 Problem Notes None recorded. Procedures Surgical History Date Name Laterality Status Provider Name and Address Organization Details Recorded Time Allergy Testing-Full completed KELLY QUEEN 100 [facility],[address] [address], [place], [address], [place] - [facility] 02/27/2025 09:42:18 Allergy Testing-Full completed STEPAN LEIVA, [facility] 100 [facility],[address] [address], [place], [address], [facility] 02/05/2025 09:59:28 Imaging Results None recorded. Procedure Notes None recorded. Medical Equipment None Reported. Allergies Allergen ID Allergen Name Allergen Category Reaction Reaction Severity Criticality Documentation Date Start Date Code Code System Note Provider Name and Address Organization Details Recorded Time 005124 Diflucan medicatio n Not available Not available Not available 01/04/2025 3 RxNorm Melissa Hector murillo [facility] 08:37:17 432883 fluconazo le medicatio n Not available Not available Not available 03/18/20252007 4450 RxNorm Red face, rash Not Available [employer] - prod 5 04:45:59 047232 Substance with sulfonami de structure and antibacte rial mechanism of action (substanc e) medicatio n rash Not available Not available 03/18/20252014 95026 8003 SNOMED Other react ion(s ): Rash/ [employer] titis Not Available [employer] prod 5 04:45:59 Medications [...] Vitals Date Recorded Body height Oxygen saturation Heart rate Body mass index (BMI) Body weight Systolic And Diastolic Provider Name and Address Organization Details Last Updated DateTime 5 165.1 cm 97 % 63 /min 27.3 kg/m2 17198.1 5 g 105/73 mm[Hg] KELLY QUEEN 100 [facility] [place], [place], [address] 09:19:58 Social History None recorded. Functional Status None recorded. Mental Status None recorded. Family History Nothing Reported. Medical History Condition Response Migraines Y Anxiety Y Gynecological HistoryNo gynecological history recorded. Obstetrics History GPAL:G 0 P 0 0 0 0 Past Encounters Encounter ID Performer Location Encounter Start Date Encounter Closed Date Diagnosis/Indication Diagnosis SNOMED-CT Code Diagnosis ICD10 Code Diagnosis IMO Codes Diagnosis Note [id number] KELLY QUEEN Allergy [address] [place],[address] [place] [address] 02/05/2025 08:48:35 02/05/2025 09:59:46 Perennial allergic rhinitis 588737190 J30.89 [id number] Health Concerns Section Related Observation LastModified by Organization Detai ls LastModified Time None Recorded Concern Status LastModified by Organization Details LastModified Time None Recorded Payers Encounter Date Sequence Insurance Name Policy Number Policy Brown Covered Member ID Brown Member ID Guarantor Name 02/05/2025 1 [facility] [id number] Ghazal Her [id number] Ghazal Her 02/05/2025 2 [place] [facility] Ghazal Her [id number] Ghazal eHr OBGyn Episode No OBEpisode recorded.
--- OUTSIDE RECORDS SUMMARY | 2025-04-08 07:49 | XMS_ITS | Clinical Summary ---
Author Organization [facility] Prior to 09/15/[address] [place] [address] Care Team Providers Care Land Surveyor Assistant Name Role Phone Nadeem Mendosa MD Primary Care Provider [phone] Allergies Active Allergy Reactions Criticality Noted Date [...] Td or Tdap) 10/11/2019 10/10/2009 COVID-19 Vaccine (2024-2 6 season) 2024 07/01/2021, 08/12/2020, 07/22/2020 Influenza Vaccine (#1) 2024 Hepatitis B Vaccines Completed 10/10/2009, 08/09/2006, 07/11/2006 Pneumococcal Vaccine Aged Out No long er eligible based on patient's age to complete this topic RSV Ped < 20 months Aged Out No longe r eligible based on patient's age to complete this topic Care Teams Land Surveyor Assistant Relationship Specialty Start Date End Date Nadeem Mendosa MD PCP - General Internal Medicine 10/23/18
--- OUTSIDE RECORDS SUMMARY | 2025-04-08 07:49 | XMS_ITS | Continuity of Care Document ---
Author Organization [place] - [facility], Allergy Address 100 [facility] [address] [place] [address] Assessment No assessment recorded. Plan of Treatment Reminders Order Date Submit Date Provider Last Modified By Organization Details Last Modified Time Details Appointments Allergy new injection 2025 10:00A M [facility] Not available Not available Not available Establish ed- Allergy f-up 6mon 2025 10:00A M JENN LAIENZ MD Not available Not available Not available Lab None recorded. Referral None recorded. Procedures None recorded. Surgeries None recorded. Imaging None recorded. Medication Orders None recorded. Patient TargetsNo targets recorded. Patient InstructionsNo instructions recorded. Reason for Referral None Reported. Results Created Date Observation Date Name Description Value Unit Range Abnormal Flag Note LastModifiedBy Organization Detail LastModifiedTime 02/06/20 25 becky metry testi ng* No observ ation record ed. Not Available 2024 09:25:24 Result Notes None recorded. Problems Name Problem SNOMED Code Status Onset Date Resolution Date Notes Provider Name and Address Organization Details Recorded Time Atypical facial pain 52344662 Active 2024 JENN LAINEZ MD [address] [address], [place], [address], [place] - [facility] 5 09:25:15 Allergic rhinitis caused by pollen 57633432 Active 2024 JENN LAINEZ MD 100 [facility] 100, [place], [address], [place] [facility] 5 12:07:19 Migraine 60029871 Active 2024 JENN LAINEZ MD 100 [facility],[address], [place], [address], [facility] - [facility] [place] 5 12:07:33 Allergic rhinitis 48517740 Active 2024 JENN LAINEZ MD 100 [facility],[address], [place], [address], [facility] - [facility] [place] 5 12:11:31 Non-allergi c rhinitis 634447633855 Active 2024 JENN LAINEZ MD 100 [facility],[address], [place], [address], [facility] - [facility] [place] 5 12:11:31 Seasonal allergic rhinitis 262085714 Active 2024 JENN LAINEZ MD 100 [facility],[address], [place], [address], [place] - [facility] 5 12:11:31 Perennial allergic rhinitis 425947697 Active 2024 KELLY QUEEN 100 [facility],[address], [place], [address], [facility] - [facility] 5 09:20:47 Deviated nasal septum 221764247 Active 2024 JENN LAINEZ MD 100 [facility],[address], [place], [address], [facility] 09:35:18 Problem Notes None recorded. Procedures Surgical History Date Name Laterality Status Provider Name and Address Organization Details Recorded Time 5 Allergy Testing-Full completed KELLY QUEEN 100 [facility] [place],[address], [address], [facility] - [facility] 02/27/2025 09:42:18 5 Allergy Testing-Full completed KELLY QUEEN 100 [facility] [place],[address], [place], [address], [facility] - [facility] 02/05/2025 09:59:28 Imaging Results None recorded. Procedure Notes None recorded. Medical Equipment None Reported. Allergies Allergen ID Allergen Name Allergen Category Reaction Reaction Severity Criticality Documentation Date Start Date Code Code System Note Provider Name and Address Organization Details Recorded Time 295605 Diflucan medicatio n Not available Not available Not available 01/04/202546951 3 RxNorm Melissa Hector murillo [place] - [facility] 5 08:37:17 801315 fluconazo le medicatio n Not available Not available Not available 03/18/20252007 4450 RxNorm Red face, rash Not Available [email or web address] External Data [employer] - prod 5 04:45:59 093990 Substance with sulfonami de structure and antibacte rial mechanism of action (substanc e) medicatio n rash Not available Not available 03/18/20252014 19485 8003 SNOMED Other react ion(s ): Rash/ [employer] titis Not Available [employer] - prod 5 04:45:59 Medications [...] Not Available Not Available Vitals Date Recorded Oxygen saturation Heart rate Systolic And Diastolic Provider Name and Address Organization Details Last Updated DateTime 02/27/2025 97 % 70 /min 112/79 mm[Hg] KELLY QUEEN 100 [facility], [place], [address], [place] - [facility] 02/27/2025 09:04:07 Social History None recorded. Functional Status None recorded. Mental Status None recorded. Family History Nothing Reported. Medical History Condition Response Migraines Y Anxiety Y Gynecological HistoryNo gynecological history recorded. Obstetrics History GPAL:G 0 P 0 0 0 0 Past Encounters Encounter ID Performer Location Encounter Start Date Encounter Closed Date Diagnosis/Indication Diagnosis SNOMED-CT Code Diagnosis ICD10 Code Diagnosis IMO Codes Diagnosis Note [id number] KELLY QUEEN Allergy 100 [facility], [address] [place] [address] 02/05/2025 08:48:35 02/05/2025 09:59:46 Perennial allergic rhinitis 459387715 J30.89 [id number] GABRIELLA QUEENJennifer Allergy 100 [facility] [address] [place] [address] 02/27/2025 08:46:37 02/27/2025 12:16:55 Perennial allergic rhinitis 606130134 J30.89 766225 Health Concerns Section Related Observation LastModified by Organization Detai ls LastModified Time None Recorded Concern Status LastModified by Organization Details LastModified Time None Recorded Payers Encounter Date Sequence Insurance Name Policy Number Policy Brown Covered Member ID Brown Member ID Guarantor Name 02/27/2025 1 [facility] [id number] Ghazal Her [id number] Ghazal Her 02/27/2025 2 [place] [facility] Ghazal Her [id number] Ghazal Her OBGyn Episode No OBEpisode recorded.
--- OUTSIDE RECORDS SUMMARY | 2025-04-08 07:49 | XMS_ITS | Encounter Summary ---
Author Organization [facility] Address [address] [place] [address] Care Team Providers Care Cylindrical Mixer Name Role Phone Nadeem Mendosa MD Primary Care Provider [phone] Encounter Details Date Type Department Care Team (Late st Contact Info) Description 02/20/2025 Results Follow-Up Obstetrics and [place]necology [place] [address] [place] [address] Kisha Mei, [address] [address] Social History Tobacco Use Types Packs/Day Years [...] No 12/27/2024 9:21 PM EDT Melissa Zacarias, RN * Are you blind or do you have serious difficulty seeing, even when wearing glasses? Answer Date of Assessment Author No 12/27/2024 9:21 PM EDT Melissa Zacarias RN * Do you have serious difficulty walking or climbing stairs? Answer Date of Assessment Author No 12/27/2024 9:21 PM FRANCISCAT Melissa Zacarias RN * Do you have [...] Entry Date Author No 12/27/2024 9:21 PM Melissa Villareal RN documented in this encounter Plan of Treatment Upcoming Encounters Date Type Department Care Team (Late st Contact Info) Description 05/15/2025 2:15 PM EST Office Visit Pulmonology - [place] [address] [facility] [address] [place] [address] Gm Spaulding MD [address] [place] [address] documented as of this encounter Visit Diagnoses Not on filedocumented in this encounter Care Teams Cylindrical Mixer Relationship Specialty Start Date End Date Nadeem Mendosa MD [address] [place] [address] PCP - General Internal Medicine 12/31/14 documented as of this encounter
--- OUTSIDE RECORDS SUMMARY | 2025-04-08 07:49 | XMS_ITS | Encounter Summary ---
Author Organization [facility] Address [address] [place] [address] Care Team Providers Care Wrapper Counter Name Role Phone Nadeem Mendosa MD Primary Care Provider [phone] Encounter Details Date Type Department Care Team (Late st Contact Info) Description 03/19/2025 Results Follow-Up Obstetrics and Gynecology - [place] [address] [place] [phone] Kisha Mei, [address] [address] Social History Tobacco Use Types Packs/Day Years [...] of Assessment Author No 12/27/2024 9:21 PM EDMelissa Diego RN documented as of this encounter Mental Status * Because of a physical, mental, or emotional condition, do you have serious difficulty concentrating, remembering, or making decisions? (5 years old or older) Answer Entry Date Author No 12/27/2024 9:21 PM Melissa Villareal RN documented in this encounter Progress Notes * Jesenia Hernandez [place] - 03/19/2025 9:07 AM EST Letter sent to patient documented in this encounter Plan of Treatment Upcoming Encounters Date Type Department Care Team (Late st Contact Info) Description 05/15/2025 2:15 PM EST Office Visit Pulmonology - [place] [address] [facility] [address] [place] [address] Gm Spaulding MD [address] [place] [address] documented as of this encounter Visit Diagnoses Not on filedocumented in this encounter Care Teams Wrapper Counter Relationship Specialty Start Date End Date Nadeem Mendosa MD [address] [place] [address] PCP - General Internal Medicine 12/31/14 documented as of this encounter
--- NOTE | 2025-04-08 08:05 | A.OFFVIS_ITS ---
Vital Signs 04/08/25 08:06 Height 5 ft 4 in Weight 167 lb BMI 28.7 BP 104/68 Blood Pressure Location Lt brachial Position Sitting Respiration 16 Pulse 56 Pulse Source Pulse Oximeter Pulse Oximetry (%) 95 Oxygen Delivery Method Room Air Intake Visit Reasons: 6m [employer] Required: No Allergies fluconazole (From Diflucan) Allergy (Unknown, Verified 04/08/25 08:06) Unknown Sulfa (Sulfonamide Antibiotics) Allergy (Unknown, Verified 04/08/25 08:06) Unknown Medication List - Last Reviewed 04/08/25 by Geovanna Jesus, [employer] clonazepam mg PO duloxetine 60 mg PO DAILY duloxetine 30 mg PO DAILY 90 days galcanezumab-gnlm (Emgality Pen) 240 mg (2 mL) subcut ONCE galcanezumab-gnlm (Emgality Pen) 120 mg subcut QMONTH prednisone Day1: Take 3 tablets by mouth in the morning Day2: Take 2 tablets by mouth in the morning Day3: Take 1 tablet by mouth in the morning Day4: Take 1/2 tablet by mouth in the morning Day5: Take 1/2 tablet by mouth in the morning rizatriptan 10 mg PO DAILY PRN 30 days tramadol 50 mg PO BID PRN trazodone 250 mg PO BEDTIME turmeric root extract 500 mg PO BID HPI Comments Details: Ghazal is a 59-year-old female patient with a past medical history of insomnia, depression, anxiety, and fibromyalgia in the clinic for chronic headache. She follows for migraine, fibromyalgia, and insomnia. 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 MRI of the brain October 2025: 4-5 punctate white matter hyperintensities, nonspecific At the time of her last visit on 02/08/2025, she had expressed worsening of her headaches. At that time, she was on Aimovig and does not seeing any profound benefit. Her typical headaches were frontal and occipital associated with light and sound sensitivity. More recently she had additional pain to the bilateral postauricular areas. She continued to have light and sound sensitivity as well as nausea. She had been experiencing head pain daily for about 2 months. Prior to that she was having 3-4 migraine headaches per week with some less intense headaches a couple times per week as well. When she first started on the Aimovig she felt that it was working well with only one mild migraine per month. At the time of our last visit, we switched her Aimovig to Emgality beginning with a loading dose. She was also given a course of prednisone at that time because she was having daily migraines. She tells me today that the prednisone helped her significantly and she was no longer having daily headaches after the course of prednisone. Since starting t he Emgality, she has only been experiencing 3 or 4 migraine days per month. They can last up to a full day. She has been taking only Tylenol for abortive therapy though rizatriptan was listed on her medication list. She has not been taking it. She also notes that her trapezius muscles feel very tender. She was not concerned about this at last visit because her migraines were more concerning. She has been taking the duloxetine and gabapentin but does not feel that the gabapentin has been significantly beneficial. She has not tried Lyrica in the past. She has tried some topical agents including diclofenac gel without significant benefit and does use heat at night. [facility] Medical History (Updated 02/10/25 @ 21:50 by Zuleima Garcia CNP) Peroneal neuropathy Small fiber neuropathy Low back pain Fibromyalgia Cervical paraspinal muscle spasm Insomnia Depression Stress Anxiety Migraine Chronic daily headache Review of Systems Const All systems reviewed & are unremarkable except as noted in HPI and below Physical Exam Vital Signs: Last Vital Signs Pulse 56 04/08/25 08:06 Resp 16 04/08/25 08:06 BP 104/68 04/08/25 08:06 Pulse Ox 95 04/08/25 08:06 Oxygen Delivery Method Room Air 04/08/25 08:06 BMI result Body Mass Index 28.7 Const General: cooperative, healthy appearing, comfortable and no acute distress Nutritional Appearance: well nourished Orientation/consciousness: patient oriented x3 Limitations: no limitations HEENT Head: Yes normal to inspection and Yes normocephalic Eyes General: appearance normal, both eyes and all related structures Visual Mccartney: normal visual mccartney by confrontation Alignment and Position: alignment normal Periorbital: periorbital findings normal Eyelids: Yes eyelids normal Conjunctivae: conjunctivae normal Sclerae: sclerae normal Neuro General: patient oriented x3 and deep tendon reflexes 2+ bilaterally Cranial nerves: Yes CN's II-XII intact bilaterally and Yes Facial sensation intact/muscles of mastication intact Cognition (Neuro): normal cognition Gait exam (Neuro): Normal gait present Motor exam (neuro): 5/5 motor strength present throughout and no tremor noted Sensory Exam: double simultaneous stimulation for sensation normal Romberg Test: Negative Pupils: Normal pupillary reactivity/response: bilateral Psych Appearance: grossly normal Mental Status: mental status grossly normal Speech and movement: Normal speech and movement present and Clear speech present Affect: normal affect Attitude: cooperative Thought process: Normal thought process present Thought content: Normal thought content present Insight: Good insight present (Psych) Judgement: Good judgement present (Psych) Assessment & Plan Assessment & Plan (1) Migraine without aura and without status migrainosus, not intractable: Code(s): G43.009 - Migraine without aura, not intractable, without status migrainosus Category: Medical Plan Ghazal is a 59-year-old female patient with a past medical history of insomnia, depression, anxiety, and fibromyalgia in the clinic for chronic headache. At the time of her last visit, she was experiencing an up tick in her migraines on the Aimovig. I gave her a course of prednisone at last visit for acute therapy and switched her from the Aimovig to Emgality starting with a loading dose. At the time of our last visit, she was less concerned about her fibromyalgia though she does note today that her trapezius muscles has been very tender despite the use of duloxetine and gabapentin at night. She has not felt the gabapentin has been significantly beneficial. I will switch her from the gabapentin 200 mg nightly to Lyrica 50 mg nightly. As for her migraine acute therapy, I a recent a prescription for rizatriptan 10 mg as needed which she can try. She has had side effects with Imitrex in the past. -continue Emgality 120 mg subcutaneous monthly injections -start a trial of rizatriptan 10 mg as needed for migraine acute therapy -stop gabapentin -start a trial of Lyrica 50 mg at bedtime -continue with heat application to trapezius muscles at night -follow up in 3 months or sooner if needed Medications: New pregabalin (Lyrica) 50 mg PO BEDTIME 30 caps 5RF 30 days Changed From rizatriptan 10 mg PO DAILY PRN To rizatriptan 10 mg PO DAILY PRN 14 tabs 5RF migraine headache 30 days Coding Level of Care Code Est Pt Level 4 (89149) Diagnoses Migraine without aura and without status migrainosus, not intractable G43.009
[2025-04-08 08:06] VITALS: BP 104/68; PULSE 56; RESP 16; O2SAT 95; BMI 28.7
== END 2025-04-08 08:13 | disposition home or self-care (01) ==
LOC: HO.HSM 07:46
PROVIDERS: PCP Internal Medicine; Visit Provider Nurse Practitioner
DX: G43.009 Migraine without aura, not intractable, without status migrainosus (principal)
CPT/HCPCS: 99214